=== PATIENT | female | born 1940 | race Caucasian/White ===

== ENCOUNTER 2023-05-11 14:00 | Inpatient (IN) | payer OTHER ==
[2023-05-11] MEDS ORDERED: ACETAMINOPHEN INJECTION 100 ML IVPB ONE (15:45)
[2023-05-11 15:51] LABS: BASO % 1.4 % (0-2.0); EOS % 6.6 % (0-4.5); HEMATOCRIT 37.9 % (32.4-45.2); HEMOGLOBIN 12.2 GM/dL (10.7-15.3); LYMPH % 34.9 % (8-40); MCHC 32.2 g/dl (32.0-36.0); MEAN CELL VOLUME 83.9 fl (80-96); MEAN PLT VOLUME 9.3 fl (7.5-11.1); MONO % 10.1 % (3.8-10.2); PLATELET COUNT 331 10^3/uL (134-434); RBC 4.51 M/mm3 (3.60-5.2); RDW 18.1 % (11.6-15.6); WHITE BLOOD COUNT 5.7 K/mm3 (4.0-10.0)
[2023-05-11 15:58] LABS: INR 0.97 (0.83-1.09); PROTHROMBIN TIME (PATIENT) 11.3 SEC (9.7-13.0)
[2023-05-11 16:01] LABS: ACTIVATED PTT 27.5 SECONDS (25.2-36.5)
[2023-05-11] MEDS: ACETAMINOPHEN 1000 MG/100 ML BAG IVPB ONE (16:02)
[2023-05-11] MEDS: SODIUM CHLORIDE 0.9% 500 ML INFUS.BAG IV ONE (16:02)
[2023-05-11 16:18] LABS: POTASSIUM 5.1 mmol/L (3.5-5.1)
[2023-05-11 16:19] LABS: CALCIUM 9.5 mg/dL (8.5-10.1)
[2023-05-11 16:20] LABS: ALBUMIN 3.3 g/dl (3.4-5.0); BLOOD UREA NITROGEN 28.9 mg/dL (7-18)
[2023-05-11 16:23] LABS: CREATININE 0.6 mg/dL (0.55-1.3)
[2023-05-11 16:25] LABS: BILIRUBIN,TOTAL 0.4 mg/dL (0.2-1); TOT PROT 7.6 g/dl (6.4-8.2)
[2023-05-11] MEDS ORDERED: morphine SULFATE 4 MG/ML VIAL ONE (19:23)
[2023-05-11] MEDS: morphine CARPU-JECT 4 MG/1 ML DISP.SYRIN IVPUSH ONE (19:33)
[2023-05-11] MEDS: SODIUM CHLORIDE 1,000 ML IV SCH (21:01)
[2023-05-11 21:21] LABS: EPI CELLS >36 /uL (0-25.1); HYALINE CASTS 5 /uL (0-3.1); URINE APPEARANCE CLOUDY; URINE BACTERIA 1749 /uL (0-1359); URINE BILIRUBIN NEGATIVE (NEGATIVE); URINE COLOR YELLOW; URINE GLUCOSE (UA) NEGATIVE (NEGATIVE); URINE KETONE NEGATIVE (NEGATIVE); URINE LEUK ESTERASE 1+ (NEGATIVE); URINE NITRITE NEGATIVE (NEGATIVE); URINE PROTEIN 2+ (NEGATIVE); URINE UROBILINOGEN 0.2 mg/dL (0.2-1.0); URINE WBC 200 /uL (0-25.8)
[2023-05-11] MEDS ORDERED: oxyCODONE HCL 5 MG TABLET ONE (21:37)
[2023-05-11] MEDS: oxyCODONE HCL 5 MG TABLET PO STA (21:44)
[2023-05-11 22:10] LABS: URINE RBC 299.7 /uL (0-23.9)
[2023-05-11] MEDS ORDERED: CEFTRIAXONE 1 GM/50 ML BAG ONE (23:18)
[2023-05-11] MEDS: CEFTRIAXONE 1 GM in DEXTROSE 5%-WATER - 50 ML IVPB ONE (23:27)
[2023-05-12] MEDS ORDERED: MELATONIN 5 MG TABLETS PO PRN (01:32)
[2023-05-12] MEDS ORDERED: MAGNESIUM HYDROX 2400MG/30ML ORAL SUSPENSION 30 ML CUP PO PRN (06:32)
[2023-05-12] MEDS ORDERED: LACTULOSE 20 GM/30 ML UDC (FOR ORAL USE ONLY) PEG PRN (06:32)
[2023-05-12] MEDS: ACETAMINOPHEN 1000 MG/100 ML BAG IVPB PRN (07:31)
[2023-05-12] MEDS: SIMETHICONE 80 MG TAB.CHEW (FP) PO SCH (08:52)
[2023-05-12] MEDS: NYSTATIN POWDER 100,000 UNITS/GM - 15 GM TOPICAL POWDER TP SCH (08:58)
[2023-05-12] MEDS: ALBUTEROL SO4 2.5/IPRATROPIUM 0.5 INH SOL 3 ML VIAL.NEB. NEB SCH (09:27)
[2023-05-12 10:15] LABS: BASO % 0.7 % (0-2.0); EOS % 4.1 % (0-4.5); HEMATOCRIT 33.8 % (32.4-45.2); HEMOGLOBIN 10.8 GM/dL (10.7-15.3); LYMPH % 18.4 % (8-40); MCH 26.6 pg (25.7-33.7); MCHC 31.8 g/dl (32.0-36.0); MEAN CELL VOLUME 83.7 fl (80-96); MEAN PLT VOLUME 9.6 fl (7.5-11.1); NEUT % 67.8 % (42.8-82.8); PLATELET COUNT 279 10^3/uL (134-434); RBC 4.04 M/mm3 (3.60-5.2); WHITE BLOOD COUNT 6.4 K/mm3 (4.0-10.0)
[2023-05-12] MEDS: ENOXAPARIN NA (PORCINE) 40 MG/0.4 ML DISP.SYRIN SQ SCH (10:30)
[2023-05-12] MEDS: LIDOCAINE 4% PATCH TP SCH (10:31)
[2023-05-12] MEDS: DOCUSATE NA 100 MG/10 ML UNIT-DOSE CUPS PO SCH (10:31)
[2023-05-12] MEDS: BACITRACIN ZINC 15 GM TUBE TOPICAL OINTMENT TP SCH (10:32)
[2023-05-12] MEDS: ONDANSETRON HCL 4 MG/5 ML BULK BOTTLE PEG SCH (10:33)
[2023-05-12] MEDS: CEFTRIAXONE 1 GM in DEXTROSE 5%-WATER - 50 ML IVPB SCH (10:34)
[2023-05-12] MEDS: VITAMINS A AND D TOPICAL OINTMENT TP SCH (10:34)
[2023-05-12] MEDS: FAMOTIDINE 20 MG/2.5 ML ORAL LIQUID PEG SCH (10:34)
[2023-05-12] MEDS: DULoxetine HCL 20 MG CAPSULE.DR PO SCH (10:35)
[2023-05-12] MEDS: oxyCODONE HCL 5 MG TABLET PO PRN (10:36)
[2023-05-12 10:38] LABS: POTASSIUM 4.7 mmol/L (3.5-5.1)
[2023-05-12 10:40] LABS: CALCIUM 8.8 mg/dL (8.5-10.1)
[2023-05-12 10:41] LABS: BLOOD UREA NITROGEN 22.3 mg/dL (7-18); MAGNESIUM 2.5 mg/dL (1.8-2.4)
[2023-05-12 10:44] LABS: CREATININE 0.5 mg/dL (0.55-1.3); PHOSPHOROUS 4.6 mg/dL (2.5-4.9)
[2023-05-12] MEDS: GABAPENTIN 100 MG CAPSULE PO SCH (14:17)
[2023-05-12] MEDS: LACTULOSE 20 GM/30 ML UDC (FOR ORAL USE ONLY) PEG SCH (14:17)
[2023-05-12] MEDS: MELATONIN 5 MG TABLETS PO SCH (21:35)
[2023-05-12] MEDS: LIDOCAINE PATCH REMOVAL MC SCH (21:36)
[2023-05-13 09:11] LABS: BASO % 1.5 % (0-2.0); EOS % 3.8 % (0-4.5); HEMATOCRIT 35.3 % (32.4-45.2); HEMOGLOBIN 11.3 GM/dL (10.7-15.3); LYMPH % 26.8 % (8-40); MCH 27.1 pg (25.7-33.7); MEAN CELL VOLUME 84.7 fl (80-96); MEAN PLT VOLUME 9.7 fl (7.5-11.1); MONO % 8.9 % (3.8-10.2); PLATELET COUNT 265 10^3/uL (134-434); RBC 4.17 M/mm3 (3.60-5.2); RDW 18.2 % (11.6-15.6)
[2023-05-13 09:27] LABS: POTASSIUM 4.4 mmol/L (3.5-5.1)
[2023-05-13 09:29] LABS: CALCIUM 8.9 mg/dL (8.5-10.1)
[2023-05-13 09:30] LABS: ALBUMIN 3.1 g/dl (3.4-5.0); BLOOD UREA NITROGEN 14.7 mg/dL (7-18); MAGNESIUM 2.5 mg/dL (1.8-2.4)
[2023-05-13 09:33] LABS: CREATININE 0.6 mg/dL (0.55-1.3); PHOSPHOROUS 4.2 mg/dL (2.5-4.9)
[2023-05-13 09:34] LABS: BILIRUBIN,TOTAL 0.4 mg/dL (0.2-1)
[2023-05-13 09:35] LABS: TOT PROT 7.1 g/dl (6.4-8.2)
[2023-05-13] MEDS: BACLOFEN 10 MG TABLET (FP) PO ONE (14:59)
[2023-05-14 07:58] LABS: HEMATOCRIT 34.5 % (32.4-45.2); HEMOGLOBIN 10.9 GM/dL (10.7-15.3); MCH 26.7 pg (25.7-33.7); MCHC 31.4 g/dl (32.0-36.0); MEAN PLT VOLUME 9.7 fl (7.5-11.1); PLATELET COUNT 254 10^3/uL (134-434); RBC 4.06 M/mm3 (3.60-5.2); RDW 18.1 % (11.6-15.6)
[2023-05-14 08:14] LABS: POTASSIUM 4.5 mmol/L (3.5-5.1)
[2023-05-14 08:15] LABS: CALCIUM 9.1 mg/dL (8.5-10.1)
[2023-05-14 08:16] LABS: BLOOD UREA NITROGEN 10.8 mg/dL (7-18)
[2023-05-14 08:19] LABS: CREATININE 0.4 mg/dL (0.55-1.3)
[2023-05-14] MEDS ORDERED: BACLOFEN 10 MG TABLET (FP) PO PRN (17:54)
[2023-05-14] MEDS: oxyCODONE HCL 5 MG TABLET PO PRN (18:16)
[2023-05-14] MEDS: BACLOFEN 10 MG TABLET (FP) PO PRN (18:16)
[2023-05-15 08:24] LABS: HEMATOCRIT 35.5 % (32.4-45.2); HEMOGLOBIN 11.4 GM/dL (10.7-15.3); MEAN CELL VOLUME 84.3 fl (80-96); MEAN PLT VOLUME 9.4 fl (7.5-11.1); PLATELET COUNT 258 10^3/uL (134-434); RBC 4.21 M/mm3 (3.60-5.2); RDW 18.1 % (11.6-15.6); WHITE BLOOD COUNT 4.3 K/mm3 (4.0-10.0)
[2023-05-15 08:46] LABS: POTASSIUM 4.3 mmol/L (3.5-5.1)
[2023-05-15 08:51] LABS: BLOOD UREA NITROGEN 11.2 mg/dL (7-18)
[2023-05-15 08:54] LABS: CREATININE 0.5 mg/dL (0.55-1.3)
[2023-05-15] MEDS: BACLOFEN 10 MG TABLET (FP) PO SCH (09:58)
[2023-05-15] MEDS: methylPREDNISolone NA SUCC 40 MG/1 ML VIAL IVPUSH ONE (11:09)
[2023-05-15] MEDS ORDERED: ALBUTEROL SO4 2.5/IPRATROPIUM 0.5 INH SOL 3 ML VIAL.NEB. NEB SCH (14:00)
[2023-05-15] MEDS: ALBUTEROL SO4 2.5/IPRATROPIUM 0.5 INH SOL 3 ML VIAL.NEB. NEB SCH (14:52)
[2023-05-17 08:51] LABS: HEMATOCRIT 34.5 % (32.4-45.2); HEMOGLOBIN 11.2 GM/dL (10.7-15.3); MCH 27.2 pg (25.7-33.7); MCHC 32.5 g/dl (32.0-36.0); MEAN CELL VOLUME 83.6 fl (80-96); MEAN PLT VOLUME 9.4 fl (7.5-11.1); PLATELET COUNT 277 10^3/uL (134-434); RBC 4.13 M/mm3 (3.60-5.2); RDW 18.3 % (11.6-15.6); WHITE BLOOD COUNT 6.1 K/mm3 (4.0-10.0)
[2023-05-17 08:55] LABS: CALCIUM 9.6 mg/dL (8.5-10.1); POTASSIUM 4.3 mmol/L (3.5-5.1)
[2023-05-17 08:56] LABS: BLOOD UREA NITROGEN 10.9 mg/dL (7-18)
[2023-05-17 08:59] LABS: CREATININE 0.5 mg/dL (0.55-1.3)
[2023-05-18] MEDS ORDERED: LIDOCAINE HCL 1%, 10 MG/ML (20ML VIAL) ONE (12:10)
[2023-05-18] MEDS ORDERED: HEPARIN NA (PORCINE) 5,000 UNITS/ML 1ML VIAL ONE (12:10)
[2023-05-18] MEDS ORDERED: PROPOFOL 20 ML ONE (13:36)
[2023-05-18] MEDS ORDERED: MIDAZOLAM HCL 2 MG/2 ML SINGLE DOSE VIAL ONE (13:57)
[2023-05-18] MEDS: ceFAZolin SODIUM 1 GM VIAL IVPB ONE (13:58)
[2023-05-18] MEDS: IOHEXOL 300 MG/ML INFUS..BTL IV ONE ×2 (14:00→14:05)
[2023-05-18] MEDS ORDERED: ONDANSETRON 4 MG/2 ML VIAL ONE (14:15)
[2023-05-18] MEDS ORDERED: KETOROLAC TROMETHAMINE 30 MG/1 ML VIAL ONE (14:15)
[2023-05-18] MEDS ORDERED: GENTAMICIN SO4 80 MG/2 ML VIAL ONE ×2 (14:15)
[2023-05-18] MEDS: GENTAMICIN SO4 80 MG/2 ML VIAL IVPB ONE (14:16)
[2023-05-18] MEDS ORDERED: ONDANSETRON 4 MG/2 ML VIAL IVPUSH PRN (14:32)
[2023-05-18] MEDS ORDERED: LACTATED RINGERS SOLUTION 1,000 ML IV SCH (14:45)
[2023-05-18] MEDS ORDERED: MAGNESIUM HYDROX 2400MG/30ML ORAL SUSPENSION 30 ML CUP PO PRN (14:47)
[2023-05-18] MEDS: CEFAZOLIN SODIUM 2 GM in DEXTROSE 5%-WATER 100 ML IVPB SCH (17:59)
[2023-05-18] MEDS: ALBUTEROL SO4 2.5/IPRATROPIUM 0.5 INH SOL 3 ML VIAL.NEB. NEB SCH (19:50)
[2023-05-18] MEDS: LACTULOSE 20 GM/30 ML UDC (FOR ORAL USE ONLY) PEG SCH (21:34)
[2023-05-18] MEDS: oxyCODONE HCL 5 MG TABLET PO PRN (21:35)
[2023-05-18] MEDS: GABAPENTIN 100 MG CAPSULE PO SCH (21:35)
[2023-05-18] MEDS: DOCUSATE NA 100 MG/10 ML UNIT-DOSE CUPS PO SCH (21:35)
[2023-05-18] MEDS: BACLOFEN 10 MG TABLET (FP) PO SCH (21:35)
[2023-05-18] MEDS: MELATONIN 5 MG TABLETS PO SCH (21:35)
[2023-05-18] MEDS: SIMETHICONE 80 MG TAB.CHEW (FP) PO SCH (21:36)
[2023-05-18] MEDS: ONDANSETRON HCL 4 MG/5 ML BULK BOTTLE PEG SCH (21:36)
[2023-05-18] MEDS: LIDOCAINE PATCH REMOVAL MC SCH (21:36)
[2023-05-18] MEDS: NYSTATIN POWDER 100,000 UNITS/GM - 15 GM TOPICAL POWDER TP SCH (21:37)
[2023-05-18] MEDS: FAMOTIDINE 20 MG/2.5 ML ORAL LIQUID PEG SCH (21:37)
[2023-05-19] MEDS: DULoxetine HCL 20 MG CAPSULE.DR PO SCH (09:03)
[2023-05-19] MEDS: BACITRACIN ZINC 15 GM TUBE TOPICAL OINTMENT TP SCH (09:04)
[2023-05-19] MEDS: VITAMINS A AND D TOPICAL OINTMENT TP SCH (09:07)
[2023-05-19] MEDS: LIDOCAINE 4% PATCH TP SCH (09:29)
[2023-05-19 10:03] LABS: MCH 26.9 pg (25.7-33.7); MCHC 31.4 g/dl (32.0-36.0); MEAN CELL VOLUME 85.6 fl (80-96); PLATELET COUNT 278 10^3/uL (134-434); RBC 4.08 M/mm3 (3.60-5.2); RDW 18.3 % (11.6-15.6); WHITE BLOOD COUNT 6.5 K/mm3 (4.0-10.0)
[2023-05-19 10:27] LABS: POTASSIUM 4.6 mmol/L (3.5-5.1)
[2023-05-19 10:43] LABS: CALCIUM 9.2 mg/dL (8.5-10.1)
[2023-05-19 10:44] LABS: BLOOD UREA NITROGEN 14.5 mg/dL (7-18)
[2023-05-19 10:47] LABS: CREATININE 0.8 mg/dL (0.55-1.3)
[2023-05-19 10:48] LABS: BILIRUBIN,TOTAL 0.4 mg/dL (0.2-1)
[2023-05-19 10:50] LABS: TOT PROT 7.4 g/dl (6.4-8.2)
[2023-05-20 08:23] LABS: HEMATOCRIT 33.1 % (32.4-45.2); HEMOGLOBIN 10.8 GM/dL (10.7-15.3); MCH 27.4 pg (25.7-33.7); MCHC 32.8 g/dl (32.0-36.0); MEAN CELL VOLUME 83.7 fl (80-96); MEAN PLT VOLUME 9.2 fl (7.5-11.1); PLATELET COUNT 259 10^3/uL (134-434); RBC 3.95 M/mm3 (3.60-5.2); RDW 18.2 % (11.6-15.6)
[2023-05-20 08:41] LABS: POTASSIUM 4.3 mmol/L (3.5-5.1)
[2023-05-20 08:43] LABS: BLOOD UREA NITROGEN 10.5 mg/dL (7-18); CALCIUM 9.2 mg/dL (8.5-10.1)
[2023-05-20 08:46] LABS: CREATININE 0.6 mg/dL (0.55-1.3)
[2023-05-20] MEDS: ENOXAPARIN NA (PORCINE) 40 MG/0.4 ML DISP.SYRIN SQ SCH (09:53)
[2023-05-20] MEDS: ASCORBIC ACID 250 MG TABLET (FP) PO SCH (12:51)
[2023-05-20] MEDS: MULTIVITAMINS THER W-MINERALS COMBO TABLET (FP) PO SCH (12:51)
[2023-05-21 07:32] LABS: POTASSIUM 4.2 mmol/L (3.5-5.1)
[2023-05-21 07:42] LABS: CALCIUM 8.8 mg/dL (8.5-10.1)
[2023-05-21 07:43] LABS: BLOOD UREA NITROGEN 8.8 mg/dL (7-18)
[2023-05-21 07:45] LABS: CREATININE 0.6 mg/dL (0.55-1.3)
[2023-05-21 07:47] LABS: HEMOGLOBIN 11.2 GM/dL (10.7-15.3); MCH 27.2 pg (25.7-33.7); MCHC 32.9 g/dl (32.0-36.0); MEAN CELL VOLUME 82.6 fl (80-96); MEAN PLT VOLUME 9.6 fl (7.5-11.1); PLATELET COUNT 258 10^3/uL (134-434); RBC 4.12 M/mm3 (3.60-5.2); RDW 17.7 % (11.6-15.6)
[2023-05-21 13:17] LABS: EPI CELLS 31 /uL (0-25.1); HYALINE CASTS 2 /uL (0-3.1); PH,URINE 7.5 (5.0-8.0); URINE APPEARANCE CLOUDY; URINE BACTERIA 288 /uL (0-1359); URINE BILIRUBIN NEGATIVE (NEGATIVE); URINE COLOR YELLOW; URINE GLUCOSE (UA) NEGATIVE (NEGATIVE); URINE KETONE TRACE (NEGATIVE); URINE LEUK ESTERASE 2+ (NEGATIVE); URINE NITRITE NEGATIVE (NEGATIVE); URINE PROTEIN 2+ (NEGATIVE); URINE UROBILINOGEN 0.2 mg/dL (0.2-1.0); URINE WBC 315 /uL (0-25.8)
[2023-05-21] MEDS: ACETAMINOPHEN 1000 MG/100 ML BAG IVPB PRN (13:30)
[2023-05-21 13:40] LABS: YEAST NEGATIVE (NEGATIVE)
[2023-05-21] MEDS ORDERED: IOHEXOL (OMNIPAQUE PO) 12 MG/ML - 500 ML BOTTLE PO ONE ×2 (13:42→16:08)
[2023-05-21] MEDS: PANTOPRAZOLE SODIUM 40 MG VIAL IVPUSH ONE (22:43)
[2023-05-22] MEDS: METOCLOPRAMIDE HCL INJECTION 10 MG/2 ML VIAL IVPUSH PRN (09:53)
[2023-05-22] MEDS: LACTATED RINGERS SOLUTION 1,000 ML/1,000 ML INFUS.BAG IV STA (09:59)
[2023-05-22 10:00] LABS: HEMATOCRIT 32.1 % (32.4-45.2); HEMOGLOBIN 10.6 GM/dL (10.7-15.3); MCH 27.1 pg (25.7-33.7); MCHC 33.2 g/dl (32.0-36.0); MEAN CELL VOLUME 81.8 fl (80-96); MEAN PLT VOLUME 9.4 fl (7.5-11.1); PLATELET COUNT 239 10^3/uL (134-434); RBC 3.92 M/mm3 (3.60-5.2); RDW 17.9 % (11.6-15.6); WHITE BLOOD COUNT 6.6 K/mm3 (4.0-10.0)
[2023-05-22 10:12] LABS: POTASSIUM 4.4 mmol/L (3.5-5.1)
[2023-05-22 10:23] LABS: ALBUMIN 2.8 g/dl (3.4-5.0); BLOOD UREA NITROGEN 16.4 mg/dL (7-18); CALCIUM 8.8 mg/dL (8.5-10.1); MAGNESIUM 2.3 mg/dL (1.8-2.4)
[2023-05-22 10:26] LABS: CREATININE 0.6 mg/dL (0.55-1.3); PHOSPHOROUS 3.6 mg/dL (2.5-4.9)
[2023-05-22 10:27] LABS: TOT PROT 6.7 g/dl (6.4-8.2)
[2023-05-22 10:28] LABS: BILIRUBIN,TOTAL 0.3 mg/dL (0.2-1)
[2023-05-22] MEDS: PIPERACILLIN/TAZOB 3.375 GM 3.375 GM in DEXTROSE 5%-WATER - 50 ML IVPB SCH ×2 (10:40→18:01)
[2023-05-22] MEDS: VANCOMYCIN/WATER 1250 MG 1,250 MG/250 ML BAG IVPB SCH ×2 (11:37→16:48)
[2023-05-22] MEDS ORDERED: PIPERACILLIN/TAZOB 3.375 GM 3.375 GM in DEXTROSE 5%-WATER - 50 ML IVPB SCH (18:00)
[2023-05-22] MEDS: ACETAMINOPHEN 1000 MG/100 ML BAG IVPB PRN (22:40)
[2023-05-23 08:59] LABS: POTASSIUM 3.8 mmol/L (3.5-5.1)
[2023-05-23 09:13] LABS: ALBUMIN 2.8 g/dl (3.4-5.0); CALCIUM 9.6 mg/dL (8.5-10.1)
[2023-05-23 09:16] LABS: CREATININE 0.7 mg/dL (0.55-1.3)
[2023-05-23 09:18] LABS: BILIRUBIN,TOTAL 0.3 mg/dL (0.2-1)
[2023-05-23 09:34] LABS: HEMATOCRIT 35.5 % (32.4-45.2); HEMOGLOBIN 11.2 GM/dL (10.7-15.3); MCH 26.5 pg (25.7-33.7); MCHC 31.5 g/dl (32.0-36.0); MEAN PLT VOLUME 9.7 fl (7.5-11.1); PLATELET COUNT 235 10^3/uL (134-434); RBC 4.23 M/mm3 (3.60-5.2); RDW 18.2 % (11.6-15.6)
[2023-05-24] MEDS: ACETAMINOPHEN 1000 MG/100 ML BAG IVPB ONE (03:26)
[2023-05-24] MEDS ORDERED: VANCOMYCIN 1,000 MG in DEXTROSE 5%-WATER - 250 ML IVPB SCH (13:00)
[2023-05-24] MEDS: VANCOMYCIN/WATER FOR INJ (PEG) 1,000 MG/200 ML BAG IVPB SCH (14:00)
[2023-05-25 08:30] LABS: HEMATOCRIT 30.3 % (32.4-45.2); MEAN PLT VOLUME 9.5 fl (7.5-11.1); PLATELET COUNT 286 10^3/uL (134-434); RBC 3.69 M/mm3 (3.60-5.2); RDW 18.4 % (11.6-15.6); WHITE BLOOD COUNT 6.4 K/mm3 (4.0-10.0)
[2023-05-25 08:41] LABS: POTASSIUM 3.6 mmol/L (3.5-5.1)
[2023-05-25 08:48] LABS: CALCIUM 8.7 mg/dL (8.5-10.1)
[2023-05-25 08:49] LABS: BLOOD UREA NITROGEN 17.3 mg/dL (7-18)
[2023-05-25 08:52] LABS: CREATININE 0.4 mg/dL (0.55-1.3)
[2023-05-25] MEDS: AMINO ACIDS/PROTEIN HYDROLYS 30 ML LIQUID.PKT PO SCH (09:17)
[2023-05-25] MEDS ORDERED: VANCOMYCIN/WATER FOR INJ (PEG) 1,000 MG/200 ML BAG IVPB SCH (14:00)
[2023-05-25] MEDS: VANCOMYCIN/WATER FOR INJ (PEG) 750 MG/150 ML BAG IVPB SCH (15:37)
[2023-05-25] MEDS: VANCOMYCIN 1,000 MG in DEXTROSE 5%-WATER - 250 ML IVPB SCH (16:24)
[2023-05-26 09:58] LABS: HEMATOCRIT 32.3 % (32.4-45.2); HEMOGLOBIN 10.3 GM/dL (10.7-15.3); MCH 26.3 pg (25.7-33.7); MCHC 31.8 g/dl (32.0-36.0); MEAN CELL VOLUME 82.8 fl (80-96); MEAN PLT VOLUME 9.2 fl (7.5-11.1); PLATELET COUNT 335 10^3/uL (134-434); RDW 18.7 % (11.6-15.6); WHITE BLOOD COUNT 5.8 K/mm3 (4.0-10.0)
[2023-05-26 10:27] LABS: POTASSIUM 3.8 mmol/L (3.5-5.1)
[2023-05-26 10:32] LABS: CALCIUM 8.9 mg/dL (8.5-10.1)
[2023-05-26 10:38] LABS: CREATININE 0.6 mg/dL (0.55-1.3)
[2023-05-26 10:59] LABS: BLOOD UREA NITROGEN 17.4 mg/dL (7-18)
[2023-05-27 08:18] LABS: MCH 25.9 pg (25.7-33.7); MCHC 31.3 g/dl (32.0-36.0); PLATELET COUNT 376 10^3/uL (134-434); RBC 3.85 M/mm3 (3.60-5.2); RDW 18.7 % (11.6-15.6); WHITE BLOOD COUNT 7.2 K/mm3 (4.0-10.0)
[2023-05-27 09:50] LABS: POTASSIUM 4.2 mmol/L (3.5-5.1)
[2023-05-27 09:51] LABS: BLOOD UREA NITROGEN 16.1 mg/dL (7-18); CALCIUM 8.9 mg/dL (8.5-10.1)
[2023-05-27 09:52] LABS: MAGNESIUM 2.4 mg/dL (1.8-2.4)
[2023-05-27 09:55] LABS: CREATININE 0.6 mg/dL (0.55-1.3); PHOSPHOROUS 3.1 mg/dL (2.5-4.9)
[2023-05-27] MEDS ORDERED: GABAPENTIN 100 MG CAPSULE PO SCH (09:56)
[2023-05-27] MEDS: GABAPENTIN 100 MG CAPSULE PO SCH (14:06)
[2023-05-27 16:08] LABS: CA HYDROGEN PHOS. 50 % (.); SIZE 6x4 mm (.); WEIGHT 34 mg (.)
[2023-05-28] MEDS: VANCOMYCIN/WATER FOR INJ (PEG) 750 MG/150 ML BAG IVPB SCH (01:00)
[2023-05-28 10:09] LABS: HEMATOCRIT 35.4 % (32.4-45.2); HEMOGLOBIN 10.9 GM/dL (10.7-15.3); MCH 25.7 pg (25.7-33.7); MCHC 30.8 g/dl (32.0-36.0); MEAN CELL VOLUME 83.4 fl (80-96); MEAN PLT VOLUME 9.3 fl (7.5-11.1); PLATELET COUNT 438 10^3/uL (134-434); RBC 4.25 M/mm3 (3.60-5.2); RDW 18.8 % (11.6-15.6); WHITE BLOOD COUNT 9.9 K/mm3 (4.0-10.0)
[2023-05-28 10:39] LABS: POTASSIUM 4.8 mmol/L (3.5-5.1)
[2023-05-28 10:44] LABS: BLOOD UREA NITROGEN 17.8 mg/dL (7-18); CALCIUM 9.2 mg/dL (8.5-10.1)
[2023-05-28 10:48] LABS: CREATININE 0.5 mg/dL (0.55-1.3)
[2023-05-28] MEDS: BACLOFEN 10 MG TABLET (FP) PO SCH (12:11)
[2023-05-28] MEDS: IBUPROFEN 400 MG TABLET (FP) PO PRN (12:11)
[2023-05-28] MEDS: VANCOMYCIN/WATER FOR INJ (PEG) 1,000 MG/200 ML BAG IVPB SCH (14:00)
[2023-05-28] MEDS: oxyCODONE HCL 5 MG TABLET PO PRN (17:02)
[2023-05-29 09:04] LABS: HEMATOCRIT 29.3 % (32.4-45.2); HEMOGLOBIN 9.6 GM/dL (10.7-15.3); MCH 26.9 pg (25.7-33.7); MCHC 32.8 g/dl (32.0-36.0); MEAN CELL VOLUME 81.9 fl (80-96); MEAN PLT VOLUME 8.9 fl (7.5-11.1); PLATELET COUNT 423 10^3/uL (134-434); RBC 3.58 M/mm3 (3.60-5.2); RDW 18.6 % (11.6-15.6); WHITE BLOOD COUNT 7.7 K/mm3 (4.0-10.0)
[2023-05-29 09:14] LABS: POTASSIUM 4.9 mmol/L (3.5-5.1)
[2023-05-29 09:25] LABS: CALCIUM 9.1 mg/dL (8.5-10.1)
[2023-05-29 09:29] LABS: CREATININE 0.4 mg/dL (0.55-1.3)
[2023-05-29] MEDS: oxyCODONE HCL 5 MG TABLET PO ONE (10:41)
[2023-05-29 18:19] VITALS: RESP 20
[2023-05-29] MEDS: oxyCODONE HCL 5 MG TABLET PO PRN (21:45)
[2023-05-30] MEDS: DULoxetine HCL 30 MG CAPSULE.DR PO SCH (10:00)
[2023-05-30 13:10] VITALS: BMI 26.8
[2023-05-30 14:02] VITALS: BP 119/61; PULSE 93; TEMP 99.3
== END 2023-05-30 21:30 | DRG 659 ==
LOC: JER 14:00 → JERBED 18:46 → J6S 23:53 → OBSVTOIN 05-13 09:59
PROVIDERS: ADMIT Internal Medicine; ATTEND Internal Medicine
PROC: 0TP98DZ Removal of Intraluminal Device from Ureter, Via Natural or Artificial Opening Endoscopic (ICD-10-PCS; 2023-05-18)
PROC: 0TCB8ZZ Extirpation of Matter from Bladder, Via Natural or Artificial Opening Endoscopic (ICD-10-PCS; 2023-05-18)
PROC: BT1DZZZ Fluoroscopy of Right Kidney, Ureter and Bladder (ICD-10-PCS; principal; 2023-05-18 13:30)
PROC: 0T768DZ Dilation of Right Ureter with Intraluminal Device, Via Natural or Artificial Opening Endoscopic (ICD-10-PCS; 2023-05-18 13:30)
DX: T83.89XA Other specified complication of genitourinary prosthetic devices, implants and grafts, initial encounter (principal); A41.81 Sepsis due to Enterococcus; N13.2 Hydronephrosis with renal and ureteral calculous obstruction; G82.20 Paraplegia, unspecified; J98.11 Atelectasis; M79.7 Fibromyalgia; E54 Ascorbic acid deficiency; R50.9 Fever, unspecified; I95.9 Hypotension, unspecified; F03.90 Unspecified dementia, unspecified severity, without behavioral disturbance, psychotic disturbance, mood disturbance, and anxiety; R00.0 Tachycardia, unspecified; J45.909 Unspecified asthma, uncomplicated; M21.372 Foot drop, left foot; M21.371 Foot drop, right foot; M62.830 Muscle spasm of back; G35 Multiple sclerosis; Y84.6 Urinary catheterization as the cause of abnormal reaction of the patient, or of later complication, without mention of misadventure at the time of the procedure; Z93.1 Gastrostomy status
CPT/HCPCS: 0241U-QW; 36415; 71045-TC-FY; 71260-TC; 72050-TC-FY; 74018-TC-FY; 74176-TC; 74177-TC; 76000-TC-FY; 80048; 80053; 81003; 82360; 82962; 83605; 83690; 83735; 84100; 85025; 85027; 85610; 85730; 86850; 86900; 86901; 87040; 87070; 87086; 87186; 88300-TC; 93005; 93010; 94010; 94640; 94760; 99285-25; C1747; C1758; C1769; C2617; G0378; G0480; J0131; J0475; J1644; Q9967

== ENCOUNTER 2023-07-05 16:58 | Inpatient (IN) | payer OTHER ==
[2023-07-05] MEDS ORDERED: ONDANSETRON *ODT* 4 MG TABLET SL ONE (17:19)
[2023-07-05] MEDS ORDERED: ONDANSETRON *ODT* 4 MG TABLET ONE (17:32)
[2023-07-05] MEDS: ONDANSETRON 4 MG/2 ML VIAL IVPUSH ONE ×2 (17:48→18:43)
[2023-07-05] MEDS ORDERED: ONDANSETRON 4 MG/2 ML VIAL ONE (18:32)
[2023-07-05] MEDS ORDERED: ALBUTEROL SO4 2.5/IPRATROPIUM 0.5 INH SOL 3 ML VIAL.NEB. NEB ONE (18:32)
[2023-07-05 18:34] LABS: VENOUS BASE EXCESS -4.5 mmol/L (-2-2); VENOUS PCO2 65.6 mmHg (38-52)
[2023-07-05 18:35] LABS: EOS % 4.2 % (0-4.5); HEMATOCRIT 37.7 % (32.4-45.2); HEMOGLOBIN 11.8 GM/dL (10.7-15.3); LYMPH % 27.8 % (8-40); MCH 26.1 pg (25.7-33.7); MCHC 31.4 g/dl (32.0-36.0); MEAN CELL VOLUME 83.1 fl (80-96); MEAN PLT VOLUME 9.2 fl (7.5-11.1); MONO % 9.9 % (3.8-10.2); NEUT % 57.1 % (42.8-82.8); PLATELET COUNT 363 10^3/uL (134-434); RBC 4.53 M/mm3 (3.60-5.2); VENOUS PH 7.191 (7.310-7.410); WHITE BLOOD COUNT 6.7 K/mm3 (4.0-10.0)
[2023-07-05] MEDS: ALBUTEROL SO4 2.5/IPRATROPIUM 0.5 INH SOL 3 ML VIAL.NEB. NEB ONE (18:43)
[2023-07-05 18:45] LABS: POTASSIUM 4.4 mmol/L (3.5-5.1)
[2023-07-05] MEDS ORDERED: LACTATED RINGERS SOLUTION 1,000 ML/1,000 ML INFUS.BAG IV SCH (18:45)
[2023-07-05 18:47] LABS: CALCIUM 9.9 mg/dL (8.5-10.1)
[2023-07-05 18:48] LABS: ALBUMIN 3.2 g/dl (3.4-5.0); BLOOD UREA NITROGEN 20.6 mg/dL (7-18); MAGNESIUM 2.9 mg/dL (1.8-2.4)
[2023-07-05 18:51] LABS: CREATININE 0.6 mg/dL (0.55-1.3)
[2023-07-05 18:52] LABS: BILIRUBIN,TOTAL 0.4 mg/dL (0.2-1)
[2023-07-05 18:53] LABS: TOT PROT 8.2 g/dl (6.4-8.2)
[2023-07-05 18:56] LABS: N-TERMINAL BNP 124.6 pg/ml (5-450)
[2023-07-05] MEDS: SODIUM CHLORIDE 0.9% 500 ML INFUS.BAG IV ONE (19:01)
[2023-07-05] MEDS: ACETAMINOPHEN 1000 MG/100 ML BAG IVPB ONE (20:55)
[2023-07-05] MEDS ORDERED: ACETAMINOPHEN INJECTION 100 ML IVPB ONE (20:56)
[2023-07-05] MEDS: morphine CARPU-JECT 2 MG/1 ML DISP.SYRIN IVPUSH ONE (23:37)
[2023-07-05 23:52] LABS: EPI CELLS 32 /uL (0-25.1); HYALINE CASTS 5 /uL (0-3.1); URINE APPEARANCE TURBID; URINE BACTERIA 459 /uL (0-1359); URINE BILIRUBIN NEGATIVE (NEGATIVE); URINE COLOR DK YELLOW; URINE GLUCOSE (UA) NEGATIVE (NEGATIVE); URINE KETONE 1+ (NEGATIVE); URINE LEUK ESTERASE 3+ (NEGATIVE); URINE NITRITE NEGATIVE (NEGATIVE); URINE PROTEIN 4+ (NEGATIVE); URINE WBC 4359 /uL (0-25.8)
[2023-07-06] MEDS ORDERED: CEFTRIAXONE 1 GM/50 ML BAG ONE (00:55)
[2023-07-06 01:14] LABS: VENOUS BASE EXCESS 1.6 mmol/L (-2-2); VENOUS O2 SATURATION 51.5 % (70-80); VENOUS PCO2 54.8 mmHg (38-52); VENOUS PH 7.332 (7.310-7.410)
[2023-07-06 01:50] LABS: ARTERIAL BLD GAS O2 SATURATION 95.2 % (95-98); ARTERIAL BLOOD GAS BASE EXCESS 1.8 mmol/L (-2-2); ARTERIAL BLOOD GAS PO2 79.4 mmHg (80-100); ARTERIAL BLOOD GAS pH 7.365 (7.350-7.450)
[2023-07-06 01:52] LABS: ALLENS TEST POSITIVE
[2023-07-06] MEDS: ONDANSETRON 4 MG/2 ML VIAL IVPUSH PRN (02:15)
[2023-07-06 04:52] LABS: URINE RBC 3194.9 /uL (0-23.9); YEAST FEW (NEGATIVE)
[2023-07-06] MEDS ORDERED: oxyCODONE HCL 5 MG TABLET PO PRN (05:28)
[2023-07-06] MEDS: GABAPENTIN 250 MG/5 ML ORAL SOLUTION, 470 ML BOTTLE GT SCH (05:43)
[2023-07-06] MEDS: LACTULOSE 20 GM/30 ML UDC (FOR ORAL USE ONLY) GT SCH (05:43)
[2023-07-06] MEDS: ACETAMINOPHEN 1000 MG/100 ML BAG IVPB PRN (06:17)
[2023-07-06 06:29] LABS: HEMATOCRIT 35.4 % (32.4-45.2); HEMOGLOBIN 10.8 GM/dL (10.7-15.3); MCH 25.9 pg (25.7-33.7); MCHC 30.6 g/dl (32.0-36.0); MEAN CELL VOLUME 84.9 fl (80-96); MEAN PLT VOLUME 9.1 fl (7.5-11.1); PLATELET COUNT 307 10^3/uL (134-434); RBC 4.17 M/mm3 (3.60-5.2); RDW 19.8 % (11.6-15.6); WHITE BLOOD COUNT 5.5 K/mm3 (4.0-10.0)
[2023-07-06 06:57] LABS: POTASSIUM 4.4 mmol/L (3.5-5.1)
[2023-07-06 07:00] LABS: CALCIUM 9.4 mg/dL (8.5-10.1)
[2023-07-06 07:01] LABS: BLOOD UREA NITROGEN 18.7 mg/dL (7-18); MAGNESIUM 2.8 mg/dL (1.8-2.4)
[2023-07-06 07:04] LABS: CREATININE 0.5 mg/dL (0.55-1.3); PHOSPHOROUS 4.5 mg/dL (2.5-4.9)
[2023-07-06 07:05] LABS: BILIRUBIN,TOTAL 0.4 mg/dL (0.2-1); TOT PROT 7.4 g/dl (6.4-8.2)
[2023-07-06] MEDS ORDERED: NYSTATIN POWDER 100,000 UNITS/GM - 15 GM TOPICAL POWDER TP SCH (10:00)
[2023-07-06] MEDS: FAMOTIDINE 20 MG TABLET PO SCH ×2 (11:00→22:08)
[2023-07-06] MEDS: DULoxetine HCL 30 MG CAPSULE.DR PO SCH (11:00)
[2023-07-06] MEDS: LIDOCAINE 4% PATCH TP SCH (11:21)
[2023-07-06] MEDS: NYSTATIN POWDER 100,000 UNITS/GM - 15 GM TOPICAL POWDER TP SCH ×2 (11:22→23:56)
[2023-07-06] MEDS: PIPERACILLIN/TAZOB 3.375 GM 3.375 GM in DEXTROSE 5%-WATER - 50 ML IVPB SCH (11:23)
[2023-07-06] MEDS: CEFAZOLIN 1 GM in DEXTROSE 5%-WATER - 50 ML IVPB SCH (17:02)
[2023-07-06] MEDS ORDERED: ACETAMINOPHEN 1000 MG/100 ML BAG IVPB PRN (18:32)
[2023-07-06] MEDS: oxyCODONE HCL 5 MG TABLET PO PRN (18:51)
[2023-07-06] MEDS ORDERED: LIDOCAINE PATCH REMOVAL MC SCH (22:00)
[2023-07-06] MEDS ORDERED: MELATONIN 5 MG TABLETS GT SCH (22:00)
[2023-07-06] MEDS: MELATONIN 5 MG TABLETS PO SCH (22:08)
[2023-07-06] MEDS: LIDOCAINE PATCH REMOVAL MC SCH (22:09)
[2023-07-06] MEDS: GABAPENTIN 250 MG/5 ML ORAL SOLUTION, 470 ML BOTTLE PO SCH (23:56)
[2023-07-07] MEDS: GABAPENTIN 100 MG CAPSULE PO SCH (06:22)
[2023-07-07] MEDS: ONDANSETRON 4 MG/2 ML VIAL IVPUSH PRN (08:42)
[2023-07-07] MEDS: ENOXAPARIN NA (PORCINE) 40 MG/0.4 ML DISP.SYRIN SQ SCH (12:36)
[2023-07-07] MEDS: DULoxetine HCL 30 MG CAPSULE.DR PO SCH (12:36)
[2023-07-07] MEDS: POLYETHYLENE GLYCOL (HEALTHYLAX) 3350 17 GM PACKET PO SCH (12:36)
[2023-07-07] MEDS: LIDOCAINE 4% PATCH TP SCH (12:36)
[2023-07-07] MEDS: SENNOSIDES/DOCUSATE COMBO (SENNA PLUS) TABLET (UD) PO SCH (12:37)
[2023-07-07 14:23] VITALS: BMI 25.0
[2023-07-08 08:29] LABS: HEMATOCRIT 36.2 % (32.4-45.2); HEMOGLOBIN 11.4 GM/dL (10.7-15.3); MCH 26.2 pg (25.7-33.7); MCHC 31.7 g/dl (32.0-36.0); MEAN CELL VOLUME 82.7 fl (80-96); MEAN PLT VOLUME 9.2 fl (7.5-11.1); PLATELET COUNT 333 10^3/uL (134-434); RBC 4.37 M/mm3 (3.60-5.2); RDW 19.2 % (11.6-15.6); WHITE BLOOD COUNT 3.9 K/mm3 (4.0-10.0)
[2023-07-08 08:34] LABS: INR 1.03 (0.83-1.09); PROTHROMBIN TIME (PATIENT) 11.9 SEC (9.7-13.0)
[2023-07-08 08:37] LABS: ACTIVATED PTT 29.8 SECONDS (25.2-36.5)
[2023-07-08 08:39] LABS: POTASSIUM 4.2 mmol/L (3.5-5.1)
[2023-07-08 08:44] LABS: BLOOD UREA NITROGEN 11.2 mg/dL (7-18)
[2023-07-08 08:45] LABS: CALCIUM 9.6 mg/dL (8.5-10.1)
[2023-07-08 08:46] LABS: CREATININE 0.5 mg/dL (0.55-1.3)
[2023-07-09 08:33] LABS: BASO % 1.2 % (0-2.0); EOS % 4.8 % (0-4.5); HEMATOCRIT 37.9 % (32.4-45.2); HEMOGLOBIN 11.8 GM/dL (10.7-15.3); LYMPH % 21.7 % (8-40); MCHC 31.2 g/dl (32.0-36.0); MEAN CELL VOLUME 83.3 fl (80-96); MEAN PLT VOLUME 8.8 fl (7.5-11.1); MONO % 11.3 % (3.8-10.2); PLATELET COUNT 315 10^3/uL (134-434); RBC 4.55 M/mm3 (3.60-5.2); RDW 19.4 % (11.6-15.6); WHITE BLOOD COUNT 5.8 K/mm3 (4.0-10.0)
[2023-07-09 08:47] LABS: POTASSIUM 4.4 mmol/L (3.5-5.1)
[2023-07-09 08:49] LABS: CALCIUM 9.2 mg/dL (8.5-10.1)
[2023-07-09 08:50] LABS: BLOOD UREA NITROGEN 10.9 mg/dL (7-18)
[2023-07-09 08:53] LABS: CREATININE 0.5 mg/dL (0.55-1.3)
[2023-07-10 08:32] LABS: POTASSIUM 4.2 mmol/L (3.5-5.1)
[2023-07-10 08:36] LABS: BLOOD UREA NITROGEN 11.7 mg/dL (7-18); CALCIUM 9.1 mg/dL (8.5-10.1)
[2023-07-10 08:40] LABS: CREATININE 0.4 mg/dL (0.55-1.3)
[2023-07-10] MEDS: AMINO ACIDS/PROTEIN HYDROLYS 30 ML LIQUID.PKT PO SCH ×2 (10:12)
[2023-07-10 13:42] VITALS: BP 138/68; PULSE 80; RESP 19; TEMP 98
== END 2023-07-10 15:17 | DRG 393 ==
LOC: JER 16:58 → JERBED 18:49 → OBSVTOIN 07-06 02:56 → J4W 07-06 05:58 → J7W 07-06 18:13
PROVIDERS: ADMIT Internal Medicine; ATTEND Internal Medicine
PROC: 0D20XUZ Change Feeding Device in Upper Intestinal Tract, External Approach (ICD-10-PCS; principal; 2023-07-08)
DX: K94.23 Gastrostomy malfunction (principal); E43 Unspecified severe protein-calorie malnutrition; J96.22 Acute and chronic respiratory failure with hypercapnia; R53.2 Functional quadriplegia; K56.7 Ileus, unspecified; L03.311 Cellulitis of abdominal wall; K94.22 Gastrostomy infection; Y83.8 Other surgical procedures as the cause of abnormal reaction of the patient, or of later complication, without mention of misadventure at the time of the procedure; M79.7 Fibromyalgia; F03.90 Unspecified dementia, unspecified severity, without behavioral disturbance, psychotic disturbance, mood disturbance, and anxiety; K57.90 Diverticulosis of intestine, part unspecified, without perforation or abscess without bleeding; Z68.25 Body mass index [BMI] 25.0-25.9, adult
CPT/HCPCS: 0241U-QW; 36415; 36600; 49440; 71045-TC-FY; 71275-TC; 74018-TC-FY; 74177-TC; 76700-TC; 80048; 80053; 81003; 82803; 83605; 83735; 83880; 84100; 84484; 85025; 85027; 85610; 85730; 86850; 86900; 86901; 87086; 93005; 93010; 99285-25; G0378; J0131

== ENCOUNTER 2023-08-04 05:47 | Emergency (ER) | payer OTHER ==
[2023-08-04 05:52] VITALS: BMI 26.5
[2023-08-04] MEDS ORDERED: ACETAMINOPHEN INJECTION 100 ML IVPB ONE (08:11)
[2023-08-04] MEDS: ACETAMINOPHEN 1000 MG/100 ML BAG IVPB ONE (08:20)
[2023-08-04 08:28] LABS: EOS % 6.5 % (0-4.5); HEMATOCRIT 37.4 % (32.4-45.2); HEMOGLOBIN 11.7 GM/dL (10.7-15.3); LYMPH % 36.2 % (8-40); MCH 26.1 pg (25.7-33.7); MCHC 31.3 g/dl (32.0-36.0); MEAN CELL VOLUME 83.6 fl (80-96); MEAN PLT VOLUME 8.9 fl (7.5-11.1); MONO % 11.2 % (3.8-10.2); NEUT % 45.1 % (42.8-82.8); PLATELET COUNT 340 10^3/uL (134-434); RBC 4.48 M/mm3 (3.60-5.2); RDW 20.2 % (11.6-15.6); WHITE BLOOD COUNT 5.6 K/mm3 (4.0-10.0)
[2023-08-04 08:37] LABS: INR 0.92 (0.83-1.09); PROTHROMBIN TIME (PATIENT) 10.4 SEC (9.7-13.0)
[2023-08-04 08:38] LABS: POTASSIUM 4.9 mmol/L (3.5-5.1)
[2023-08-04 08:39] LABS: ACTIVATED PTT 29.6 SECONDS (25.2-36.5)
[2023-08-04 08:40] LABS: ALBUMIN 3.2 g/dl (3.4-5.0); CALCIUM 9.4 mg/dL (8.5-10.1)
[2023-08-04 08:43] LABS: CREATININE 0.6 mg/dL (0.55-1.3)
[2023-08-04 08:45] LABS: BILIRUBIN,TOTAL 0.4 mg/dL (0.2-1); TOT PROT 8.3 g/dl (6.4-8.2)
[2023-08-04] MEDS ORDERED: ONDANSETRON 4 MG/2 ML VIAL ONE (08:48)
[2023-08-04] MEDS: ONDANSETRON 4 MG/2 ML VIAL IVPUSH ONE (08:55)
[2023-08-04 09:26] VITALS: BP 143/87; PULSE 90; RESP 20; TEMP 98.3
== END 2023-08-04 11:03 ==
LOC: JER 05:47
PROC: 0DH60UZ Insertion of Feeding Device into Stomach, Open Approach (ICD-10-PCS; principal; 2023-08-04)
PROC: 3E030NZ Introduction of Analgesics, Hypnotics, Sedatives into Peripheral Vein, Open Approach (ICD-10-PCS; 2023-08-04)
PROC: 3E030GC Introduction of Other Therapeutic Substance into Peripheral Vein, Open Approach (ICD-10-PCS; 2023-08-04)
DX: K94.23 Gastrostomy malfunction (principal)
CPT/HCPCS: 36415; 43762; 49450; 74018-TC-FY; 74176-TC; 80053; 85025; 85610; 85730; 86850; 86900; 86901; 93005; 93010; 96374; 96375; 99285-25; J0131

== ENCOUNTER 2023-09-17 15:36 | Inpatient (IN) | payer OTHER ==
[2023-09-17] MEDS ORDERED: ALBUTEROL SO4 2.5/IPRATROPIUM 0.5 INH SOL 3 ML VIAL.NEB. NEB ONE (17:04)
[2023-09-17] MEDS ORDERED: ACETAMINOPHEN INJECTION 100 ML IVPB ONE (17:04)
[2023-09-17 17:05] LABS: BASO % 0.9 % (0-2.0); HEMATOCRIT 36.3 % (32.4-45.2); LYMPH % 28.6 % (8-40); MCH 24.3 pg (25.7-33.7); MCHC 30.3 g/dl (32.0-36.0); MEAN PLT VOLUME 8.6 fl (7.5-11.1); MONO % 8.7 % (3.8-10.2); NEUT % 57.8 % (42.8-82.8); PLATELET COUNT 364 10^3/uL (134-434); RBC 4.54 M/mm3 (3.60-5.2); RDW 19.3 % (11.6-15.6); WHITE BLOOD COUNT 6.3 K/mm3 (4.0-10.0)
[2023-09-17] MEDS: ALBUTEROL SO4 2.5/IPRATROPIUM 0.5 INH SOL 3 ML VIAL.NEB. NEB SCH ×2 (17:06→18:53)
[2023-09-17] MEDS: ACETAMINOPHEN 1000 MG/100 ML BAG IVPB ONE (17:06)
[2023-09-17 17:08] LABS: VENOUS BASE EXCESS 6.2 mmol/L (-2-2); VENOUS O2 SATURATION 57.3 % (70-80); VENOUS PH 7.311 (7.310-7.410)
[2023-09-17 17:12] LABS: INR 0.94 (0.83-1.09); PROTHROMBIN TIME (PATIENT) 10.8 SEC (9.7-13.0)
[2023-09-17 17:15] LABS: ACTIVATED PTT 26.5 SECONDS (25.2-36.5)
[2023-09-17 17:27] LABS: POTASSIUM 5.3 mmol/L (3.5-5.1)
[2023-09-17 17:31] LABS: ALBUMIN 3.1 g/dl (3.4-5.0); BLOOD UREA NITROGEN 31.7 mg/dL (7-18); CALCIUM 9.3 mg/dL (8.5-10.1)
[2023-09-17 17:34] LABS: CREATININE 0.5 mg/dL (0.55-1.3)
[2023-09-17 17:36] LABS: BILIRUBIN,TOTAL 0.4 mg/dL (0.2-1); TOT PROT 8.1 g/dl (6.4-8.2)
[2023-09-17] MEDS: ONDANSETRON 4 MG/2 ML VIAL IVPUSH ONE (17:41)
[2023-09-17 17:42] LABS: VENOUS PCO2 70.1 mmHg (38-52)
[2023-09-17] MEDS ORDERED: ONDANSETRON 4 MG/2 ML VIAL ONE (17:42)
[2023-09-17] MEDS: methylPREDNISolone NA SUCC 125 MG/2 ML VIAL IVPB ONE (18:53)
[2023-09-17] MEDS ORDERED: methylPREDNISolone NA SUCC 125 MG/2 ML VIAL ONE (19:04)
[2023-09-17 19:59] LABS: VENOUS O2 SATURATION 74.6 % (70-80); VENOUS PH 7.273 (7.310-7.410)
[2023-09-17 21:30] LABS: EPI CELLS 15 /uL (0-25.1); HYALINE CASTS 2 /uL (0-3.1); URINE APPEARANCE Cloudy; URINE BACTERIA 139 /uL (0-1359); URINE BILIRUBIN Negative (NEGATIVE); URINE COLOR Yellow; URINE GLUCOSE (UA) Negative (NEGATIVE); URINE KETONE Negative (NEGATIVE); URINE LEUK ESTERASE Large (NEGATIVE); URINE NITRITE Negative (NEGATIVE); URINE PROTEIN 30 (NEGATIVE); URINE UROBILINOGEN 0.2 mg/dL (0.2-1.0); URINE WBC 3845 /uL (0-25.8)
[2023-09-17 22:04] LABS: URINE RBC 269.3 /uL (0-23.9); YEAST PRESENT (NEGATIVE)
[2023-09-17] MEDS ORDERED: VANCOMYCIN 1 GRAM (PRE-DOCKED) 1,000 MG/250 ML BAG IVPB ONE (22:10)
[2023-09-17] MEDS: VANCOMYCIN 1,000 MG in DEXTROSE 5%-WATER - 250 ML IVPB ONE (22:16)
[2023-09-18 03:29] LABS: ARTERIAL BLD GAS O2 SATURATION 95.8 % (95-98); ARTERIAL BLOOD GAS BASE EXCESS 4.1 mmol/L (-2-2); ARTERIAL BLOOD GAS PO2 84.2 mmHg (80-100); ARTERIAL BLOOD GAS pH 7.361 (7.350-7.450)
[2023-09-18 03:30] LABS: VENT MODE S/T; VENT RATE 18
[2023-09-18] MEDS ORDERED: PIPERACILLIN/TAZOB 3.375 GM 3.375 GM/50 ML BAG IVPB ONE (03:53)
[2023-09-18] MEDS: PIPERACILLIN/TAZOB 3.375 GM 3.375 GM in DEXTROSE 5%-WATER - 50 ML IVPB SCH ×2 (03:57→19:40)
[2023-09-18] MEDS ORDERED: ACETAMINOPHEN INJECTION 100 ML IVPB ONE (07:14)
[2023-09-18] MEDS: ACETAMINOPHEN 1000 MG/100 ML BAG IVPB ONE (07:19)
[2023-09-18] MEDS ORDERED: ACETAMINOPHEN 1000 MG/100 ML BAG IVPB PRN (08:43)
[2023-09-18 10:33] LABS: N-TERMINAL BNP 274.7 pg/ml (5-450)
[2023-09-18] MEDS: ENOXAPARIN NA (PORCINE) 40 MG/0.4 ML DISP.SYRIN SQ SCH (10:35)
[2023-09-18] MEDS: AMINO ACIDS/PROTEIN HYDROLYS 30 ML LIQUID.PKT PO SCH (15:38)
[2023-09-18] MEDS: ACETAMINOPHEN 650 MG/20.3 ML ORAL SOLUTION (CUPS) GT PRN (15:46)
[2023-09-18] MEDS: ALBUTEROL SO4 2.5/IPRATROPIUM 0.5 INH SOL 3 ML VIAL.NEB. NEB SCH (16:33)
[2023-09-18] MEDS: DULoxetine HCL 30 MG CAPSULE.DR PO SCH ×2 (18:29→18:49)
[2023-09-18] MEDS: ONDANSETRON 4 MG TABLET PO SCH (18:29)
[2023-09-18] MEDS: oxyCODONE HCL 5 MG TABLET PO PRN (20:34)
[2023-09-18] MEDS: FAMOTIDINE 20 MG TABLET PEG SCH (22:26)
[2023-09-18] MEDS: DOCUSATE NA 100 MG/10 ML UNIT-DOSE CUPS PO SCH (22:26)
[2023-09-18] MEDS: SIMETHICONE 80 MG TAB.CHEW (FP) PO SCH (22:26)
[2023-09-18] MEDS: MELATONIN 5 MG TABLETS GT SCH (22:26)
[2023-09-18] MEDS: BACLOFEN 10 MG TABLET (FP) PO SCH (22:26)
[2023-09-18] MEDS: GABAPENTIN 250 MG/5 ML ORAL SOLUTION, 470 ML BOTTLE GT SCH (22:26)
[2023-09-18] MEDS: NYSTATIN POWDER 100,000 UNITS/GM - 15 GM TOPICAL POWDER TP SCH (23:56)
[2023-09-19] MEDS: hydrOXYzine PAMOATE 25 MG CAPSULE (FP) PO ONE (00:54)
[2023-09-19 06:16] LABS: ARTERIAL BLD GAS O2 SATURATION 96.1 % (95-98); ARTERIAL BLOOD GAS pH 7.373 (7.350-7.450)
[2023-09-19 06:21] LABS: ALLENS TEST POSITIVE
[2023-09-19 07:50] LABS: HEMATOCRIT 35.1 % (32.4-45.2); HEMOGLOBIN 10.6 GM/dL (10.7-15.3); MCH 24.2 pg (25.7-33.7); MCHC 30.2 g/dl (32.0-36.0); MEAN CELL VOLUME 80.1 fl (80-96); MEAN PLT VOLUME 8.8 fl (7.5-11.1); PLATELET COUNT 354 10^3/uL (134-434); RBC 4.38 M/mm3 (3.60-5.2); RDW 19.4 % (11.6-15.6); WHITE BLOOD COUNT 7.6 K/mm3 (4.0-10.0)
[2023-09-19 08:08] LABS: POTASSIUM 4.2 mmol/L (3.5-5.1)
[2023-09-19 08:23] LABS: BLOOD UREA NITROGEN 34.5 mg/dL (7-18); CALCIUM 9.1 mg/dL (8.5-10.1)
[2023-09-19 08:24] LABS: ALBUMIN 3.3 g/dl (3.4-5.0); MAGNESIUM 2.4 mg/dL (1.8-2.4)
[2023-09-19 08:27] LABS: CREATININE 0.6 mg/dL (0.55-1.3); PHOSPHOROUS 5.1 mg/dL (2.5-4.9)
[2023-09-19 08:28] LABS: BILIRUBIN,TOTAL 0.5 mg/dL (0.2-1); TOT PROT 7.9 g/dl (6.4-8.2)
[2023-09-19] MEDS: MAGNESIUM HYDROX 2400MG/30ML ORAL SUSPENSION 30 ML CUP GT SCH (10:52)
[2023-09-19] MEDS: POLYETHYLENE GLYCOL (HEALTHYLAX) 3350 17 GM PACKET PO SCH (10:52)
[2023-09-19] MEDS: PIPERACILLIN/TAZOB 3.375 GM 3.375 GM in DEXTROSE 5%-WATER - 50 ML IVPB SCH (17:08)
[2023-09-19] MEDS: LACTOBACILLUS ACIDOPHILUS 1 TABLET PO SCH (21:36)
[2023-09-20] MEDS: VANCOMYCIN ORAL SOLUTION 125 MG/2.5 ML PO SCH (00:16)
[2023-09-20] MEDS: VANCOMYCIN 250 MG/5 ML ORAL SOLUTION (RESTRICTED TO ID ONLY) PO SCH (04:25)
[2023-09-20 07:32] LABS: BASO % 1.1 % (0-2.0); EOS % 3.2 % (0-4.5); HEMATOCRIT 37.1 % (32.4-45.2); HEMOGLOBIN 11.4 GM/dL (10.7-15.3); MCH 24.5 pg (25.7-33.7); MCHC 30.6 g/dl (32.0-36.0); MEAN CELL VOLUME 79.9 fl (80-96); MEAN PLT VOLUME 8.9 fl (7.5-11.1); MONO % 10.4 % (3.8-10.2); NEUT % 62.3 % (42.8-82.8); PLATELET COUNT 330 10^3/uL (134-434); RBC 4.65 M/mm3 (3.60-5.2); RDW 19.4 % (11.6-15.6); WHITE BLOOD COUNT 5.8 K/mm3 (4.0-10.0)
[2023-09-20 07:47] LABS: POTASSIUM 4.5 mmol/L (3.5-5.1)
[2023-09-20 07:50] LABS: CALCIUM 9.4 mg/dL (8.5-10.1)
[2023-09-20 07:51] LABS: ALBUMIN 3.3 g/dl (3.4-5.0); MAGNESIUM 2.7 mg/dL (1.8-2.4)
[2023-09-20 07:54] LABS: CREATININE 0.5 mg/dL (0.55-1.3); PHOSPHOROUS 3.9 mg/dL (2.5-4.9)
[2023-09-20 07:56] LABS: BILIRUBIN,TOTAL 0.8 mg/dL (0.2-1)
[2023-09-21 08:36] LABS: BASO % 0.9 % (0-2.0); EOS % 4.7 % (0-4.5); HEMATOCRIT 34.8 % (32.4-45.2); HEMOGLOBIN 10.8 GM/dL (10.7-15.3); LYMPH % 22.1 % (8-40); MCH 24.5 pg (25.7-33.7); MEAN CELL VOLUME 79.2 fl (80-96); MEAN PLT VOLUME 8.9 fl (7.5-11.1); MONO % 11.1 % (3.8-10.2); NEUT % 61.2 % (42.8-82.8); PLATELET COUNT 340 10^3/uL (134-434); RDW 19.1 % (11.6-15.6); WHITE BLOOD COUNT 5.6 K/mm3 (4.0-10.0)
[2023-09-21 08:38] LABS: POTASSIUM 4.4 mmol/L (3.5-5.1)
[2023-09-21 08:41] LABS: HEMATOCRIT 34.3 % (32.4-45.2); HEMOGLOBIN 10.7 GM/dL (10.7-15.3); MCH 24.6 pg (25.7-33.7); MCHC 31.1 g/dl (32.0-36.0); MEAN CELL VOLUME 79.3 fl (80-96); PLATELET COUNT 350 10^3/uL (134-434); RBC 4.32 M/mm3 (3.60-5.2); RDW 19.1 % (11.6-15.6); WHITE BLOOD COUNT 5.7 K/mm3 (4.0-10.0)
[2023-09-21 08:44] LABS: CALCIUM 9.1 mg/dL (8.5-10.1)
[2023-09-21 08:45] LABS: ALBUMIN 3.3 g/dl (3.4-5.0); BLOOD UREA NITROGEN 23.5 mg/dL (7-18); MAGNESIUM 2.7 mg/dL (1.8-2.4)
[2023-09-21 08:48] LABS: CREATININE 0.6 mg/dL (0.55-1.3); PHOSPHOROUS 4.4 mg/dL (2.5-4.9)
[2023-09-21 08:49] LABS: TOT PROT 7.8 g/dl (6.4-8.2)
[2023-09-21 08:50] LABS: BILIRUBIN,TOTAL 0.9 mg/dL (0.2-1)
[2023-09-22 07:58] LABS: HEMATOCRIT 35.8 % (32.4-45.2); HEMOGLOBIN 10.8 GM/dL (10.7-15.3); MCH 24.3 pg (25.7-33.7); MCHC 30.2 g/dl (32.0-36.0); MEAN CELL VOLUME 80.3 fl (80-96); PLATELET COUNT 298 10^3/uL (134-434); RBC 4.45 M/mm3 (3.60-5.2); RDW 19.5 % (11.6-15.6); WHITE BLOOD COUNT 6.2 K/mm3 (4.0-10.0)
[2023-09-22 08:15] LABS: POTASSIUM 4.4 mmol/L (3.5-5.1)
[2023-09-22 08:18] LABS: ALBUMIN 3.1 g/dl (3.4-5.0); CALCIUM 8.8 mg/dL (8.5-10.1)
[2023-09-22 08:19] LABS: MAGNESIUM 2.5 mg/dL (1.8-2.4)
[2023-09-22 08:21] LABS: CREATININE 0.5 mg/dL (0.55-1.3); PHOSPHOROUS 3.5 mg/dL (2.5-4.9)
[2023-09-22 08:23] LABS: BILIRUBIN,TOTAL 0.9 mg/dL (0.2-1); TOT PROT 7.6 g/dl (6.4-8.2)
[2023-09-23 08:24] LABS: HEMATOCRIT 34.5 % (32.4-45.2); HEMOGLOBIN 10.6 GM/dL (10.7-15.3); MCH 24.3 pg (25.7-33.7); MCHC 30.6 g/dl (32.0-36.0); MEAN CELL VOLUME 79.3 fl (80-96); MEAN PLT VOLUME 9.1 fl (7.5-11.1); PLATELET COUNT 307 10^3/uL (134-434); RBC 4.35 M/mm3 (3.60-5.2); RDW 19.3 % (11.6-15.6); WHITE BLOOD COUNT 5.7 K/mm3 (4.0-10.0)
[2023-09-23 08:48] LABS: POTASSIUM 4.8 mmol/L (3.5-5.1)
[2023-09-23 09:03] LABS: ALBUMIN 3.1 g/dl (3.4-5.0); BLOOD UREA NITROGEN 23.5 mg/dL (7-18)
[2023-09-23 09:05] LABS: CALCIUM 9.2 mg/dL (8.5-10.1); MAGNESIUM 2.3 mg/dL (1.8-2.4)
[2023-09-23 09:06] LABS: PHOSPHOROUS 3.8 mg/dL (2.5-4.9)
[2023-09-23 09:07] LABS: BILIRUBIN,TOTAL 0.7 mg/dL (0.2-1); CREATININE 0.4 mg/dL (0.55-1.3)
[2023-09-23 09:09] LABS: TOT PROT 7.3 g/dl (6.4-8.2)
[2023-09-23] MEDS ORDERED: ERTAPENEM SODIUM 1 GM in SODIUM CHLORIDE 50 ML IVPB SCH (10:00)
[2023-09-23 10:58] VITALS: BMI 30.1
[2023-09-24 07:00] LABS: HEMOGLOBIN 10.9 GM/dL (10.7-15.3); MCH 24.3 pg (25.7-33.7); MCHC 30.4 g/dl (32.0-36.0); MEAN CELL VOLUME 79.9 fl (80-96); PLATELET COUNT 292 10^3/uL (134-434); RBC 4.51 M/mm3 (3.60-5.2); RDW 19.5 % (11.6-15.6); WHITE BLOOD COUNT 6.5 K/mm3 (4.0-10.0)
[2023-09-24 07:21] LABS: POTASSIUM 4.6 mmol/L (3.5-5.1)
[2023-09-24 07:28] LABS: BLOOD UREA NITROGEN 22.3 mg/dL (7-18); CALCIUM 9.5 mg/dL (8.5-10.1)
[2023-09-24 07:29] LABS: ALBUMIN 3.2 g/dl (3.4-5.0); MAGNESIUM 2.2 mg/dL (1.8-2.4)
[2023-09-24 07:30] LABS: PHOSPHOROUS 3.9 mg/dL (2.5-4.9)
[2023-09-24 07:31] LABS: TOT PROT 7.3 g/dl (6.4-8.2)
[2023-09-24 07:32] LABS: BILIRUBIN,TOTAL 0.5 mg/dL (0.2-1); CREATININE 0.4 mg/dL (0.55-1.3)
[2023-09-24 13:17] LABS: ARTERIAL BLD GAS O2 SATURATION 93.9 % (95-98); ARTERIAL BLOOD GAS BASE EXCESS 4.6 mmol/L (-2-2); ARTERIAL BLOOD GAS PO2 71.4 mmHg (80-100); ARTERIAL BLOOD GAS pH 7.382 (7.350-7.450)
[2023-09-24 13:18] LABS: ALLENS TEST POSITIVE
[2023-09-26 08:25] LABS: HEMATOCRIT 34.4 % (32.4-45.2); HEMOGLOBIN 10.4 GM/dL (10.7-15.3); MCHC 30.3 g/dl (32.0-36.0); MEAN CELL VOLUME 79.3 fl (80-96); MEAN PLT VOLUME 9.6 fl (7.5-11.1); PLATELET COUNT 294 10^3/uL (134-434); RBC 4.34 M/mm3 (3.60-5.2); RDW 19.5 % (11.6-15.6); WHITE BLOOD COUNT 5.1 K/mm3 (4.0-10.0)
[2023-09-26 08:39] LABS: POTASSIUM 4.5 mmol/L (3.5-5.1)
[2023-09-26 08:41] LABS: CALCIUM 9.4 mg/dL (8.5-10.1)
[2023-09-26 08:42] LABS: BLOOD UREA NITROGEN 21.7 mg/dL (7-18); MAGNESIUM 2.3 mg/dL (1.8-2.4)
[2023-09-26 08:45] LABS: CREATININE 0.5 mg/dL (0.55-1.3); PHOSPHOROUS 4.1 mg/dL (2.5-4.9)
[2023-09-26 08:47] LABS: BILIRUBIN,TOTAL 0.5 mg/dL (0.2-1); TOT PROT 6.9 g/dl (6.4-8.2)
[2023-09-26] MEDS: AMINO ACIDS 4.25%/D5W 1,000 ML IV SCH (20:06)
[2023-09-27 06:55] LABS: BASO % 2.2 % (0-2.0); EOS % 7.5 % (0-4.5); HEMATOCRIT 34.6 % (32.4-45.2); HEMOGLOBIN 10.5 GM/dL (10.7-15.3); LYMPH % 26.2 % (8-40); MCH 24.4 pg (25.7-33.7); MCHC 30.4 g/dl (32.0-36.0); MEAN CELL VOLUME 80.1 fl (80-96); MEAN PLT VOLUME 9.1 fl (7.5-11.1); MONO % 12.3 % (3.8-10.2); NEUT % 51.8 % (42.8-82.8); PLATELET COUNT 270 10^3/uL (134-434); RBC 4.32 M/mm3 (3.60-5.2); RDW 19.4 % (11.6-15.6); WHITE BLOOD COUNT 4.3 K/mm3 (4.0-10.0)
[2023-09-27 07:12] LABS: POTASSIUM 4.4 mmol/L (3.5-5.1)
[2023-09-27 07:15] LABS: CALCIUM 9.4 mg/dL (8.5-10.1)
[2023-09-27 07:16] LABS: BLOOD UREA NITROGEN 21.7 mg/dL (7-18); MAGNESIUM 2.2 mg/dL (1.8-2.4)
[2023-09-27 07:19] LABS: CREATININE 0.5 mg/dL (0.55-1.3); PHOSPHOROUS 4.4 mg/dL (2.5-4.9)
[2023-09-27 07:20] LABS: BILIRUBIN,TOTAL 0.5 mg/dL (0.2-1); TOT PROT 7.1 g/dl (6.4-8.2)
[2023-09-27 08:21] LABS: HEMATOCRIT 35.6 % (32.4-45.2); HEMOGLOBIN 10.7 GM/dL (10.7-15.3); MCH 24.1 pg (25.7-33.7); MEAN CELL VOLUME 80.3 fl (80-96); MEAN PLT VOLUME 9.5 fl (7.5-11.1); PLATELET COUNT 289 10^3/uL (134-434); RBC 4.43 M/mm3 (3.60-5.2); RDW 19.4 % (11.6-15.6); WHITE BLOOD COUNT 5.1 K/mm3 (4.0-10.0)
[2023-09-27] MEDS: traMADol HCL 50 MG TABLET PO PRN (10:31)
[2023-09-28 08:11] LABS: HEMATOCRIT 34.4 % (32.4-45.2); HEMOGLOBIN 10.8 GM/dL (10.7-15.3); MCH 24.6 pg (25.7-33.7); MCHC 31.3 g/dl (32.0-36.0); MEAN CELL VOLUME 78.5 fl (80-96); MEAN PLT VOLUME 9.5 fl (7.5-11.1); PLATELET COUNT 294 10^3/uL (134-434); RBC 4.38 M/mm3 (3.60-5.2); RDW 19.6 % (11.6-15.6); WHITE BLOOD COUNT 4.5 K/mm3 (4.0-10.0)
[2023-09-28 08:48] LABS: POTASSIUM 4.3 mmol/L (3.5-5.1)
[2023-09-28 08:54] LABS: ALBUMIN 3.2 g/dl (3.4-5.0); CALCIUM 9.4 mg/dL (8.5-10.1); MAGNESIUM 2.3 mg/dL (1.8-2.4)
[2023-09-28 08:55] LABS: BLOOD UREA NITROGEN 21.6 mg/dL (7-18)
[2023-09-28 08:57] LABS: CREATININE 0.5 mg/dL (0.55-1.3); PHOSPHOROUS 3.1 mg/dL (2.5-4.9)
[2023-09-28 08:58] LABS: BILIRUBIN,TOTAL 0.5 mg/dL (0.2-1); TOT PROT 7.7 g/dl (6.4-8.2)
[2023-09-29] MEDS: ceFAZolin SODIUM 1 GM VIAL IVPB ONE
[2023-09-29 08:25] LABS: HEMOGLOBIN 10.6 GM/dL (10.7-15.3); MCH 24.6 pg (25.7-33.7); MCHC 31.2 g/dl (32.0-36.0); MEAN CELL VOLUME 78.6 fl (80-96); MEAN PLT VOLUME 9.7 fl (7.5-11.1); PLATELET COUNT 287 10^3/uL (134-434); RBC 4.32 M/mm3 (3.60-5.2); RDW 19.5 % (11.6-15.6); WHITE BLOOD COUNT 4.2 K/mm3 (4.0-10.0)
[2023-09-29 08:37] LABS: POTASSIUM 4.2 mmol/L (3.5-5.1)
[2023-09-29 08:44] LABS: ALBUMIN 3.1 g/dl (3.4-5.0)
[2023-09-29 08:45] LABS: BLOOD UREA NITROGEN 21.4 mg/dL (7-18); CALCIUM 9.2 mg/dL (8.5-10.1); MAGNESIUM 2.4 mg/dL (1.8-2.4)
[2023-09-29 08:49] LABS: BILIRUBIN,TOTAL 0.3 mg/dL (0.2-1); CREATININE 0.4 mg/dL (0.55-1.3); TOT PROT 7.1 g/dl (6.4-8.2)
[2023-09-29] MEDS: DEXTROSE 50%-WATER 25 GM/50 ML DISP.SYRIN IVPUSH ONE (12:45)
[2023-09-29 14:08] LABS: INR 0.9 (0.83-1.09); PROTHROMBIN TIME (PATIENT) 10.4 SEC (9.7-13.0)
[2023-09-29] MEDS: DEXTROSE 5%-0.45% SALINE 1,000 ML IV SCH (14:22)
[2023-09-29 16:18] LABS: POTASSIUM 4.6 mmol/L (3.5-5.1)
[2023-09-29 16:20] LABS: CALCIUM 9.7 mg/dL (8.5-10.1)
[2023-09-29 16:22] LABS: ALBUMIN 3.3 g/dl (3.4-5.0); BLOOD UREA NITROGEN 25.1 mg/dL (7-18)
[2023-09-29 16:24] LABS: CREATININE 0.6 mg/dL (0.55-1.3)
[2023-09-29 16:25] LABS: BILIRUBIN,TOTAL 0.3 mg/dL (0.2-1); TOT PROT 7.6 g/dl (6.4-8.2)
[2023-09-29] MEDS ORDERED: ALBUTEROL SO4 HFA INHALER IH ONE (18:37)
[2023-09-29] MEDS ORDERED: ETOMIDATE 20 MG/10 ML VIAL IVPUSH ONE (18:48)
[2023-09-29] MEDS ORDERED: GLYCOPYRROLATE 0.2 MG/1 ML VIAL ONE (18:50)
[2023-09-29] MEDS ORDERED: ALBUTEROL SO4 0.083% IH SOL 2.5 MG/3 ML VIAL.NEB. NEB ONE (18:56)
[2023-09-29] MEDS: VANCOMYCIN 1 GM in NS (PRE-DOCKED) 1,000 MG/250 ML (RESTRICTED TO ID ONLY) IVPB ONE (19:18)
[2023-09-29] MEDS ORDERED: ONDANSETRON 4 MG/2 ML VIAL IVPUSH PRN (19:59)
[2023-09-29] MEDS ORDERED: ACETAMINOPHEN INJECTION 100 ML IVPB ONE (20:07)
[2023-09-29] MEDS: ACETAMINOPHEN 1000 MG/100 ML BAG IVPB ONE (20:10)
[2023-09-29] MEDS ORDERED: DEXTROSE 5%-0.45% SALINE 1,000 ML IV SCH (20:31)
[2023-09-29] MEDS: LACTATED RINGERS SOLUTION 1,000 ML IV SCH (20:48)
[2023-09-29] MEDS: MELATONIN 5 MG TABLETS GT SCH (22:40)
[2023-09-29] MEDS: LACTOBACILLUS ACIDOPHILUS 1 TABLET PO SCH (22:40)
[2023-09-29] MEDS: SIMETHICONE 80 MG TAB.CHEW (FP) PO SCH (22:40)
[2023-09-29] MEDS: FAMOTIDINE 20 MG TABLET PEG SCH (22:40)
[2023-09-29] MEDS: BACLOFEN 10 MG TABLET (FP) PO SCH (22:41)
[2023-09-29] MEDS: NYSTATIN POWDER 100,000 UNITS/GM - 15 GM TOPICAL POWDER TP SCH (22:41)
[2023-09-30] MEDS: GABAPENTIN 250 MG/5 ML ORAL SOLUTION, 470 ML BOTTLE GT SCH (00:44)
[2023-09-30] MEDS: VANCOMYCIN ORAL SOLUTION 125 MG/2.5 ML PO SCH (00:46)
[2023-09-30] MEDS: ONDANSETRON 4 MG/2 ML VIAL IVPUSH ONE (05:32)
[2023-09-30] MEDS: ONDANSETRON 4 MG TABLET PO SCH (06:31)
[2023-09-30] MEDS: ACETAMINOPHEN 650 MG/20.3 ML ORAL SOLUTION (CUPS) GT PRN (06:35)
[2023-09-30 07:32] LABS: HEMATOCRIT 36.6 % (32.4-45.2); HEMOGLOBIN 11.3 GM/dL (10.7-15.3); MCH 24.6 pg (25.7-33.7); MCHC 30.8 g/dl (32.0-36.0); MEAN CELL VOLUME 79.7 fl (80-96); MEAN PLT VOLUME 9.9 fl (7.5-11.1); PLATELET COUNT 264 10^3/uL (134-434); RBC 4.59 M/mm3 (3.60-5.2); RDW 19.6 % (11.6-15.6); WHITE BLOOD COUNT 13.5 K/mm3 (4.0-10.0)
[2023-09-30 07:47] LABS: MAGNESIUM 2.4 mg/dL (1.8-2.4)
[2023-09-30 07:50] LABS: PHOSPHOROUS 3.1 mg/dL (2.5-4.9)
[2023-09-30] MEDS: ALBUTEROL SO4 2.5/IPRATROPIUM 0.5 INH SOL 3 ML VIAL.NEB. NEB SCH (08:39)
[2023-09-30] MEDS: MAGNESIUM HYDROX 2400MG/30ML ORAL SUSPENSION 30 ML CUP GT SCH (10:34)
[2023-09-30] MEDS: ENOXAPARIN NA (PORCINE) 40 MG/0.4 ML DISP.SYRIN SQ SCH (10:35)
[2023-09-30] MEDS: AMINO ACIDS/PROTEIN HYDROLYS 30 ML LIQUID.PKT PO SCH (10:35)
[2023-09-30] MEDS: DULoxetine HCL 30 MG CAPSULE.DR PO SCH (10:35)
[2023-09-30] MEDS: traMADol HCL 50 MG TABLET PO PRN (21:11)
[2023-10-01] MEDS: LIDOCAINE 5% TOPICAL PATCH TP ONE (05:01)
[2023-10-01] MEDS: oxyCODONE HCL 5 MG TABLET PO ONE (05:01)
[2023-10-01] MEDS ORDERED: oxyCODONE HCL 5 MG TABLET PO PRN ×2 (06:44→07:48)
[2023-10-01 07:57] LABS: POTASSIUM 4.6 mmol/L (3.5-5.1)
[2023-10-01 08:01] LABS: CALCIUM 9.4 mg/dL (8.5-10.1)
[2023-10-01 08:02] LABS: ALBUMIN 2.8 g/dl (3.4-5.0); BLOOD UREA NITROGEN 26.9 mg/dL (7-18); MAGNESIUM 2.6 mg/dL (1.8-2.4)
[2023-10-01 08:05] LABS: CREATININE 0.7 mg/dL (0.55-1.3); PHOSPHOROUS 2.7 mg/dL (2.5-4.9)
[2023-10-01 08:06] LABS: BILIRUBIN,TOTAL 0.4 mg/dL (0.2-1); TOT PROT 6.7 g/dl (6.4-8.2)
[2023-10-01 08:09] LABS: MCH 24.9 pg (25.7-33.7); MCHC 31.2 g/dl (32.0-36.0); MEAN CELL VOLUME 79.7 fl (80-96); MEAN PLT VOLUME 9.9 fl (7.5-11.1); PLATELET COUNT 242 10^3/uL (134-434); RBC 4.02 M/mm3 (3.60-5.2); RDW 19.9 % (11.6-15.6); WHITE BLOOD COUNT 10.1 K/mm3 (4.0-10.0)
[2023-10-01] MEDS ORDERED: PIPERACILLIN/TAZOB 3.375 GM 3.375 GM in DEXTROSE 5%-WATER - 50 ML IVPB SCH ×2 (09:15→15:00)
[2023-10-01] MEDS ORDERED: PIPERACILLIN/TAZOB 3.375 GM 3.375 GM in DEXTROSE 5%-WATER - 50 ML IVPB ONE (10:20)
[2023-10-01] MEDS ORDERED: VANCOMYCIN 1,000 MG in DEXTROSE 5%-WATER - 250 ML IVPB ONE (10:33)
[2023-10-01] MEDS: ACETAMINOPHEN 1000 MG/100 ML BAG IVPB PRN (10:45)
[2023-10-01] MEDS: BACITRACIN ZINC 15 GM TUBE TOPICAL OINTMENT TP SCH (10:46)
[2023-10-01] MEDS: PIPERACILLIN/TAZOB 3.375 GM 3.375 GM in DEXTROSE 5%-WATER - 50 ML IVPB SCH (13:12)
[2023-10-01] MEDS: CEFTRIAXONE 1 GM in DEXTROSE 5%-WATER - 50 ML IVPB SCH (14:53)
[2023-10-01] MEDS: LIDOCAINE PATCH REMOVAL MC ONE (18:14)
[2023-10-02 07:25] LABS: HEMATOCRIT 29.5 % (32.4-45.2); HEMOGLOBIN 9.2 GM/dL (10.7-15.3); MCH 24.6 pg (25.7-33.7); MEAN CELL VOLUME 79.2 fl (80-96); PLATELET COUNT 228 10^3/uL (134-434); RBC 3.73 M/mm3 (3.60-5.2); RDW 19.9 % (11.6-15.6); WHITE BLOOD COUNT 9.2 K/mm3 (4.0-10.0)
[2023-10-02 07:34] LABS: POTASSIUM 4.2 mmol/L (3.5-5.1)
[2023-10-02 07:38] LABS: ALBUMIN 2.7 g/dl (3.4-5.0); BLOOD UREA NITROGEN 27.2 mg/dL (7-18); MAGNESIUM 2.6 mg/dL (1.8-2.4)
[2023-10-02 07:41] LABS: CREATININE 0.7 mg/dL (0.55-1.3)
[2023-10-02 07:42] LABS: BILIRUBIN,TOTAL 0.4 mg/dL (0.2-1); TOT PROT 6.6 g/dl (6.4-8.2)
[2023-10-02] MEDS: ACETAMINOPHEN 1000 MG/100 ML BAG IVPB PRN (20:55)
[2023-10-03 07:45] LABS: HEMATOCRIT 32.2 % (32.4-45.2); HEMOGLOBIN 9.8 GM/dL (10.7-15.3); MCH 24.4 pg (25.7-33.7); MCHC 30.6 g/dl (32.0-36.0); MEAN CELL VOLUME 79.6 fl (80-96); MEAN PLT VOLUME 9.6 fl (7.5-11.1); PLATELET COUNT 234 10^3/uL (134-434); RBC 4.04 M/mm3 (3.60-5.2); WHITE BLOOD COUNT 6.1 K/mm3 (4.0-10.0)
[2023-10-03 08:03] LABS: CALCIUM 9.6 mg/dL (8.5-10.1)
[2023-10-03 08:04] LABS: ALBUMIN 2.8 g/dl (3.4-5.0); MAGNESIUM 2.6 mg/dL (1.8-2.4)
[2023-10-03 08:07] LABS: CREATININE 0.6 mg/dL (0.55-1.3); PHOSPHOROUS 4.2 mg/dL (2.5-4.9)
[2023-10-03 08:09] LABS: BILIRUBIN,TOTAL 0.4 mg/dL (0.2-1); TOT PROT 7.2 g/dl (6.4-8.2)
[2023-10-03] MEDS: PIPERACILLIN/TAZOB 3.375 GM 3.375 GM in DEXTROSE 5%-WATER - 50 ML IVPB SCH (10:04)
[2023-10-04 11:26] VITALS: RESP 18
[2023-10-04] MEDS: PIPERACILLIN/TAZOB 3.375 GM 3.375 GM in DEXTROSE 5%-WATER - 50 ML IVPB SCH (11:31)
[2023-10-04] MEDS: ACETAMINOPHEN 1000 MG/100 ML BAG IVPB PRN (12:22)
[2023-10-04 15:47] LABS: HEMATOCRIT 31.5 % (32.4-45.2); HEMOGLOBIN 9.7 GM/dL (10.7-15.3); MCH 24.1 pg (25.7-33.7); MCHC 30.6 g/dl (32.0-36.0); MEAN CELL VOLUME 78.8 fl (80-96); MEAN PLT VOLUME 9.4 fl (7.5-11.1); PLATELET COUNT 286 10^3/uL (134-434); RDW 20.2 % (11.6-15.6)
[2023-10-04 16:14] LABS: POTASSIUM 4.2 mmol/L (3.5-5.1)
[2023-10-04 16:17] LABS: ALBUMIN 2.7 g/dl (3.4-5.0); MAGNESIUM 2.7 mg/dL (1.8-2.4)
[2023-10-04 17:18] LABS: BILIRUBIN,TOTAL 0.3 mg/dL (0.2-1); CREATININE 0.8 mg/dL (0.55-1.3); PHOSPHOROUS 3.7 mg/dL (2.5-4.9); TOT PROT 7.1 g/dl (6.4-8.2)
[2023-10-05 09:57] VITALS: BP 101/68; PULSE 77; TEMP 98.4
== END 2023-10-05 11:48 | DRG 981 ==
LOC: JER 15:36 → JERBED 20:57 → J4W 09-18 08:38
PROVIDERS: ADMIT Internal Medicine; ATTEND Internal Medicine
PROC: 0T768DZ Dilation of Right Ureter with Intraluminal Device, Via Natural or Artificial Opening Endoscopic (ICD-10-PCS; 2023-09-29)
PROC: BT1DZZZ Fluoroscopy of Right Kidney, Ureter and Bladder (ICD-10-PCS; 2023-09-29)
PROC: 3E0K8GC Introduction of Other Therapeutic Substance into Genitourinary Tract, Via Natural or Artificial Opening Endoscopic (ICD-10-PCS; 2023-09-29)
PROC: 0TP98DZ Removal of Intraluminal Device from Ureter, Via Natural or Artificial Opening Endoscopic (ICD-10-PCS; 2023-09-29)
PROC: 0TCB8ZZ Extirpation of Matter from Bladder, Via Natural or Artificial Opening Endoscopic (ICD-10-PCS; principal; 2023-09-29 16:45)
PROC: 0T7B8DZ Dilation of Bladder with Intraluminal Device, Via Natural or Artificial Opening Endoscopic (ICD-10-PCS; 2023-09-29 16:45)
DX: J96.21 Acute and chronic respiratory failure with hypoxia (principal); R53.2 Functional quadriplegia; J44.1 Chronic obstructive pulmonary disease with (acute) exacerbation; R65.10 Systemic inflammatory response syndrome (SIRS) of non-infectious origin without acute organ dysfunction; N39.0 Urinary tract infection, site not specified; A04.72 Enterocolitis due to Clostridium difficile, not specified as recurrent; N13.6 Pyonephrosis; K56.7 Ileus, unspecified; J96.22 Acute and chronic respiratory failure with hypercapnia; G35 Multiple sclerosis; F03.90 Unspecified dementia, unspecified severity, without behavioral disturbance, psychotic disturbance, mood disturbance, and anxiety; J45.909 Unspecified asthma, uncomplicated; N21.0 Calculus in bladder; M79.7 Fibromyalgia; G47.33 Obstructive sleep apnea (adult) (pediatric); N20.0 Calculus of kidney
CPT/HCPCS: 0241U-QW; 36415; 36600; 71045-TC-FY; 74018-TC-FY; 74177-TC; 80048; 80053; 80061; 81003; 82803; 82962; 83036; 83605; 83690; 83735; 83880; 84100; 84443; 84484; 85025; 85027; 85610; 85730; 86850; 86900; 86901; 87040; 87070; 87075; 87077; 87086; 87186; 87205; 87324; 87449; 87493; 93005; 93010; 93306-TC; 94640; 94660; 94760; 99285-25; C1769; C2617; J0131; J0475; Q9967

== ENCOUNTER 2023-11-09 21:01 | Inpatient (IN) | payer OTHER ==
[2023-11-09 23:30] LABS: BASO % 0.3 % (0-2.0); EOS % 0.8 % (0-4.5); HEMATOCRIT 32.4 % (32.4-45.2); HEMOGLOBIN 10.3 GM/dL (10.7-15.3); LYMPH % 13.3 % (8-40); MCH 25.4 pg (25.7-33.7); MCHC 31.7 g/dl (32.0-36.0); MEAN CELL VOLUME 80.1 fl (80-96); MEAN PLT VOLUME 8.9 fl (7.5-11.1); MONO % 7.7 % (3.8-10.2); NEUT % 77.9 % (42.8-82.8); PLATELET COUNT 365 10^3/uL (134-434); RBC 4.04 M/mm3 (3.60-5.2); RDW 21.1 % (11.6-15.6); WHITE BLOOD COUNT 10.7 K/mm3 (4.0-10.0)
[2023-11-09 23:35] LABS: ADD RBC MORPHOLOGY YES
[2023-11-09 23:43] LABS: INR 1.04 (0.83-1.09); PROTHROMBIN TIME (PATIENT) 11.9 SEC (9.7-13.0)
[2023-11-09 23:46] LABS: ACTIVATED PTT 28.2 SECONDS (25.2-36.5)
[2023-11-09 23:52] LABS: CALCIUM 9.3 mg/dL (8.5-10.1); POTASSIUM 4.7 mmol/L (3.5-5.1)
[2023-11-09 23:54] LABS: BLOOD UREA NITROGEN 23.9 mg/dL (7-18)
[2023-11-09 23:57] LABS: CREATININE 0.6 mg/dL (0.55-1.3)
[2023-11-09] MEDS ORDERED: ACETAMINOPHEN INJECTION 100 ML IVPB ONE (23:58)
[2023-11-09 23:59] LABS: BILIRUBIN,TOTAL 0.5 mg/dL (0.2-1); TOT PROT 7.7 g/dl (6.4-8.2)
[2023-11-10] MEDS: ACETAMINOPHEN 1000 MG/100 ML BAG IVPB ONE
[2023-11-10] MEDS ORDERED: PIPERACILLIN/TAZOB 4.5 GM 4.5 GM/100 ML BAG IVPB ONE (00:18)
[2023-11-10] MEDS: PIPERACILLIN/TAZOB 4.5 GM 4.5 GM in DEXTROSE 5%-WATER 100 ML IVPB ONE (00:20)
[2023-11-10 00:58] LABS: ANISOCYTOSIS 0; MACROCYTOSIS 0
[2023-11-10 01:27] LABS: ERYTHROCYTE SEDIMENTATION RATE 96 mm/hr (0-30)
[2023-11-10] MEDS ORDERED: VANCOMYCIN 1 GRAM (PRE-DOCKED) 1,000 MG/250 ML BAG IVPB ONE (01:51)
[2023-11-10] MEDS: VANCOMYCIN 1,000 MG in DEXTROSE 5%-WATER - 250 ML IVPB ONE (02:05)
[2023-11-10] MEDS ORDERED: KETOROLAC TROMETHAMINE 15 MG/ML VIAL ONE (02:49)
[2023-11-10] MEDS: KETOROLAC TROMETHAMINE 15 MG/ML VIAL IVPUSH ONE (02:50)
[2023-11-10] MEDS: ONDANSETRON 4 MG/2 ML VIAL IVPUSH ONE (05:09)
[2023-11-10] MEDS ORDERED: LACTULOSE 20 GM/30 ML UDC (FOR ORAL USE ONLY) GT PRN (05:21)
[2023-11-10] MEDS ORDERED: [UNRECOGNIZED DRUG - OTHER] GT PRN (05:21)
[2023-11-10] MEDS ORDERED: ACETAMINOPHEN GT PRN (05:21)
[2023-11-10] MEDS ORDERED: ACETAMINOPHEN 650 MG/20.3 ML ORAL SOLUTION (CUPS) GT PRN (05:57)
[2023-11-10] MEDS: ALBUTEROL SO4 2.5/IPRATROPIUM 0.5 INH SOL 3 ML VIAL.NEB. NEB SCH (08:16)
[2023-11-10] MEDS: AMINO ACIDS/PROTEIN HYDROLYS 30 ML LIQUID.PKT PO SCH (08:59)
[2023-11-10] MEDS: DEXTROSE 5%-0.45% SALINE 1,000 ML IV SCH (09:05)
[2023-11-10] MEDS ORDERED: DULoxetine HCL 30 MG CAPSULE.DR PO SCH (10:00)
[2023-11-10] MEDS ORDERED: ENOXAPARIN NA (PORCINE) 40 MG/0.4 ML DISP.SYRIN SQ SCH (10:00)
[2023-11-10] MEDS ORDERED: PIPERACILLIN/TAZOB 4.5 GM 4.5 GM in DEXTROSE 5%-WATER 100 ML IVPB SCH (10:00)
[2023-11-10] MEDS: BACLOFEN 10 MG TABLET (FP) GT SCH (10:02)
[2023-11-10 10:16] LABS: BASO % 0.7 % (0-2.0); EOS % 3.6 % (0-4.5); HEMATOCRIT 33.3 % (32.4-45.2); HEMOGLOBIN 10.4 GM/dL (10.7-15.3); LYMPH % 18.5 % (8-40); MCH 25.4 pg (25.7-33.7); MCHC 31.2 g/dl (32.0-36.0); MEAN CELL VOLUME 81.4 fl (80-96); MEAN PLT VOLUME 8.9 fl (7.5-11.1); NEUT % 67.2 % (42.8-82.8); PLATELET COUNT 319 10^3/uL (134-434); RBC 4.09 M/mm3 (3.60-5.2); RDW 20.7 % (11.6-15.6); WHITE BLOOD COUNT 7.8 K/mm3 (4.0-10.0)
[2023-11-10] MEDS: PIPERACILLIN/TAZOB 4.5 GM 4.5 GM in DEXTROSE 5%-WATER 100 ML IVPB SCH ×2 (10:16→19:54)
[2023-11-10] MEDS: LIDOCAINE 4% PATCH TP SCH (10:16)
[2023-11-10 10:36] LABS: POTASSIUM 4.3 mmol/L (3.5-5.1)
[2023-11-10 10:42] LABS: ALBUMIN 2.8 g/dl (3.4-5.0); BLOOD UREA NITROGEN 24.2 mg/dL (7-18); CALCIUM 9.5 mg/dL (8.5-10.1)
[2023-11-10 10:43] LABS: MAGNESIUM 2.6 mg/dL (1.8-2.4)
[2023-11-10 10:45] LABS: CREATININE 0.8 mg/dL (0.55-1.3)
[2023-11-10 10:46] LABS: BILIRUBIN,TOTAL 0.5 mg/dL (0.2-1); TOT PROT 7.5 g/dl (6.4-8.2)
[2023-11-10] MEDS: IOHEXOL (OMNIPAQUE IV) 350 MG/ML - 100 ML BOTTLE GT ONE (14:21)
[2023-11-10] MEDS: BACITRACIN ZINC 15 GM TUBE TOPICAL OINTMENT TP SCH (14:58)
[2023-11-10] MEDS: NYSTATIN POWDER 100,000 UNITS/GM - 15 GM TOPICAL POWDER TP SCH (14:59)
[2023-11-10] MEDS: ACETAMINOPHEN 1000 MG/100 ML BAG IVPB PRN (15:00)
[2023-11-10] MEDS ORDERED: KETOROLAC TROMETHAMINE 15 MG/ML VIAL IVPUSH PRN (16:06)
[2023-11-10 17:13] LABS: EPI CELLS >36 /uL (0-25.1); HYALINE CASTS 1 /uL (0-3.1); PH,URINE 5.5 (5.0-8.0); URINE APPEARANCE CLEAR; URINE BACTERIA 2 /uL (0-1359); URINE BILIRUBIN NEGATIVE (NEGATIVE); URINE COLOR YELLOW; URINE GLUCOSE (UA) NEGATIVE (NEGATIVE); URINE KETONE NEGATIVE (NEGATIVE); URINE LEUK ESTERASE NEGATIVE (NEGATIVE); URINE NITRITE NEGATIVE (NEGATIVE); URINE PROTEIN 2+ (NEGATIVE); URINE RBC 26 /uL (0-23.9); URINE UROBILINOGEN 0.2 mg/dL (0.2-1.0)
[2023-11-10] MEDS: PIPERACILLIN/TAZOB 3.375 GM 3.375 GM in DEXTROSE 5%-WATER - 50 ML IVPB SCH (17:42)
[2023-11-10 18:19] LABS: URINE CRYSTALS MODERATE /hpf; URINE WBC 338.1 /uL (0-25.8); YEAST NONE SEEN (NEGATIVE)
[2023-11-10] MEDS: MAGNESIUM HYDROX 2400MG/30ML ORAL SUSPENSION 30 ML CUP GT SCH (19:53)
[2023-11-10] MEDS: ASCORBIC ACID 500 MG TABLET (FP) GT SCH (19:53)
[2023-11-10] MEDS: FAMOTIDINE 20 MG TABLET NGT SCH (19:53)
[2023-11-10] MEDS: DULoxetine HCL 30 MG CAPSULE.DR PO SCH (19:53)
[2023-11-10] MEDS: GABAPENTIN 250 MG/5 ML ORAL SOLUTION, 470 ML BOTTLE GT SCH (19:54)
[2023-11-10] MEDS: MELATONIN 5 MG TABLETS GT SCH (21:12)
[2023-11-10] MEDS: KETOROLAC TROMETHAMINE 15 MG/ML VIAL IVPUSH PRN (21:29)
[2023-11-10] MEDS ORDERED: LACTOBACILLUS ACIDOPHILUS 1 TABLET NGT SCH (22:00)
[2023-11-10] MEDS ORDERED: LACTOBACILLUS ACIDOPHILUS 1 TABLET PO SCH (22:00)
[2023-11-10] MEDS: LIDOCAINE PATCH REMOVAL MC SCH (22:15)
[2023-11-11] MEDS: ONDANSETRON 4 MG/2 ML VIAL IVPUSH PRN (04:36)
[2023-11-11 08:02] LABS: HEMATOCRIT 31.1 % (32.4-45.2); HEMOGLOBIN 9.7 GM/dL (10.7-15.3); MCH 25.4 pg (25.7-33.7); MCHC 31.3 g/dl (32.0-36.0); MEAN CELL VOLUME 81.3 fl (80-96); PLATELET COUNT 364 10^3/uL (134-434); RBC 3.82 M/mm3 (3.60-5.2); RDW 20.6 % (11.6-15.6); WHITE BLOOD COUNT 6.1 K/mm3 (4.0-10.0)
[2023-11-11 08:26] LABS: POTASSIUM 4.1 mmol/L (3.5-5.1)
[2023-11-11 08:31] LABS: ALBUMIN 2.8 g/dl (3.4-5.0); CALCIUM 8.9 mg/dL (8.5-10.1); MAGNESIUM 2.6 mg/dL (1.8-2.4)
[2023-11-11 08:35] LABS: BILIRUBIN,TOTAL 0.4 mg/dL (0.2-1); CREATININE 0.9 mg/dL (0.55-1.3); PHOSPHOROUS 5.2 mg/dL (2.5-4.9); TOT PROT 7.2 g/dl (6.4-8.2)
[2023-11-11] MEDS ORDERED: KETOROLAC TROMETHAMINE 15 MG/ML VIAL IVPUSH PRN (15:58)
[2023-11-11] MEDS ORDERED: MAGNESIUM HYDROX 2400MG/30ML ORAL SUSPENSION 30 ML CUP PO PRN (19:02)
[2023-11-11] MEDS: traMADol HCL 50 MG TABLET PO PRN (19:40)
[2023-11-11] MEDS: KETOROLAC TROMETHAMINE 15 MG/ML VIAL IVPUSH ONE (21:44)
[2023-11-11] MEDS: SIMETHICONE 80 MG TAB.CHEW (FP) PO SCH (21:47)
[2023-11-11] MEDS: LACTOBACILLUS ACIDOPHILUS 1 TABLET PO SCH (21:47)
[2023-11-11] MEDS: MELATONIN 5 MG TABLETS PO SCH (21:47)
[2023-11-11] MEDS: QUEtiapine FUMARATE 25 MG TABLET PO ONE (21:47)
[2023-11-11] MEDS: FAMOTIDINE 20 MG TABLET PO SCH (21:47)
[2023-11-11] MEDS: BACLOFEN 10 MG TABLET (FP) PO SCH (21:47)
[2023-11-12 08:50] VITALS: BMI 31.6
[2023-11-12 09:18] LABS: HEMATOCRIT 32.4 % (32.4-45.2); HEMOGLOBIN 10.1 GM/dL (10.7-15.3); MCH 25.3 pg (25.7-33.7); MCHC 31.1 g/dl (32.0-36.0); MEAN CELL VOLUME 81.4 fl (80-96); MEAN PLT VOLUME 9.2 fl (7.5-11.1); PLATELET COUNT 395 10^3/uL (134-434); RBC 3.98 M/mm3 (3.60-5.2); RDW 20.8 % (11.6-15.6); WHITE BLOOD COUNT 5.8 K/mm3 (4.0-10.0)
[2023-11-12 09:28] LABS: POTASSIUM 3.8 mmol/L (3.5-5.1)
[2023-11-12 09:33] LABS: CALCIUM 9.4 mg/dL (8.5-10.1)
[2023-11-12 09:34] LABS: BLOOD UREA NITROGEN 17.8 mg/dL (7-18)
[2023-11-12 09:37] LABS: CREATININE 0.7 mg/dL (0.55-1.3)
[2023-11-12 09:38] LABS: BILIRUBIN,TOTAL 0.4 mg/dL (0.2-1); TOT PROT 7.6 g/dl (6.4-8.2)
[2023-11-12] MEDS: DULoxetine HCL 30 MG CAPSULE.DR PO SCH (10:21)
[2023-11-12] MEDS: ASCORBIC ACID 500 MG TABLET (FP) PO SCH (10:21)
[2023-11-12] MEDS: ENOXAPARIN NA (PORCINE) 40 MG/0.4 ML DISP.SYRIN SQ SCH (10:23)
[2023-11-12] MEDS: POLYETHYLENE GLYCOL (HEALTHYLAX) 3350 17 GM PACKET GT SCH (10:23)
[2023-11-12] MEDS: AMINO ACIDS/PROTEIN HYDROLYS 30 ML LIQUID.PKT PO SCH (10:23)
[2023-11-13 09:08] LABS: HEMATOCRIT 32.1 % (32.4-45.2); MCH 24.9 pg (25.7-33.7); MCHC 31.1 g/dl (32.0-36.0); MEAN PLT VOLUME 8.8 fl (7.5-11.1); PLATELET COUNT 421 10^3/uL (134-434); RBC 4.01 M/mm3 (3.60-5.2); RDW 20.8 % (11.6-15.6); WHITE BLOOD COUNT 4.9 K/mm3 (4.0-10.0)
[2023-11-13 09:13] LABS: CALCIUM 9.2 mg/dL (8.5-10.1)
[2023-11-13 09:14] LABS: MAGNESIUM 2.6 mg/dL (1.8-2.4)
[2023-11-13 09:16] LABS: CREATININE 0.7 mg/dL (0.55-1.3); PHOSPHOROUS 3.7 mg/dL (2.5-4.9)
[2023-11-13 09:17] LABS: BILIRUBIN,TOTAL 0.5 mg/dL (0.2-1); TOT PROT 7.2 g/dl (6.4-8.2)
[2023-11-13] MEDS: MEROPENEM 1 GM in DEXTROSE 5%-WATER 100 ML IVPB SCH (14:14)
[2023-11-14 06:19] VITALS: RESP 20
[2023-11-14] MEDS: ACETAMINOPHEN 1000 MG/100 ML BAG IVPB PRN (06:26)
[2023-11-14 09:03] LABS: HEMATOCRIT 31.4 % (32.4-45.2); HEMOGLOBIN 9.7 GM/dL (10.7-15.3); MCH 24.8 pg (25.7-33.7); MCHC 30.8 g/dl (32.0-36.0); MEAN CELL VOLUME 80.4 fl (80-96); MEAN PLT VOLUME 8.8 fl (7.5-11.1); PLATELET COUNT 412 10^3/uL (134-434); RDW 20.3 % (11.6-15.6); WHITE BLOOD COUNT 5.8 K/mm3 (4.0-10.0)
[2023-11-14 09:15] LABS: POTASSIUM 4.3 mmol/L (3.5-5.1)
[2023-11-14 09:18] LABS: CALCIUM 9.3 mg/dL (8.5-10.1)
[2023-11-14 09:19] LABS: ALBUMIN 2.8 g/dl (3.4-5.0); BLOOD UREA NITROGEN 9.2 mg/dL (7-18); MAGNESIUM 2.6 mg/dL (1.8-2.4)
[2023-11-14 09:23] LABS: BILIRUBIN,TOTAL 0.4 mg/dL (0.2-1); PHOSPHOROUS 3.3 mg/dL (2.5-4.9)
[2023-11-14 09:26] LABS: CREATININE 0.5 mg/dL (0.55-1.3)
[2023-11-14] MEDS: BACITRACIN ZINC 15 GM TUBE TOPICAL OINTMENT TP SCH (11:21)
[2023-11-14 19:33] VITALS: BP 113/75; PULSE 70; TEMP 98.6
[2023-11-14] MEDS ORDERED: DOXYCYCLINE INJECTION 100 MG in DEXTROSE 5%-WATER 100 ML IVPB SCH (22:00)
== END 2023-11-14 20:01 | DRG 919 ==
LOC: JER 21:01 → JERBED 11-10 04:27 → J6S 11-10 07:11 → J8W 11-13 20:27
PROVIDERS: ADMIT Internal Medicine
DX: T85.528A Displacement of other gastrointestinal prosthetic devices, implants and grafts, initial encounter (principal); R53.2 Functional quadriplegia; J96.11 Chronic respiratory failure with hypoxia; L03.311 Cellulitis of abdominal wall; J96.12 Chronic respiratory failure with hypercapnia; Z43.1 Encounter for attention to gastrostomy; L02.211 Cutaneous abscess of abdominal wall; G35 Multiple sclerosis; M79.7 Fibromyalgia; Y83.9 Surgical procedure, unspecified as the cause of abnormal reaction of the patient, or of later complication, without mention of misadventure at the time of the procedure
CPT/HCPCS: 36415; 74018-TC-FY; 74176-TC; 74177-TC; 76705-TC; 80053; 81003; 82962; 83735; 84100; 85025; 85027; 85610; 85651; 85730; 86140; 86850; 86900; 86901; 87040; 87070; 87077; 87186; 87205; 93005; 93010; 94640; 99285-25; J0131; J0475

== ENCOUNTER 2023-11-30 20:10 | Emergency (ER) | payer OTHER ==
[2023-11-30 20:21] VITALS: BMI 30.3
[2023-11-30 21:07] LABS: BASO % 0.7 % (0-2.0); EOS % 3.8 % (0-4.5); HEMOGLOBIN 10.6 GM/dL (10.7-15.3); LYMPH % 24.4 % (8-40); MCH 24.9 pg (25.7-33.7); MEAN CELL VOLUME 80.3 fl (80-96); MEAN PLT VOLUME 9.4 fl (7.5-11.1); MONO % 9.7 % (3.8-10.2); NEUT % 61.4 % (42.8-82.8); PLATELET COUNT 297 10^3/uL (134-434); RBC 4.24 M/mm3 (3.60-5.2); RDW 20.6 % (11.6-15.6); WHITE BLOOD COUNT 7.9 K/mm3 (4.0-10.0)
[2023-11-30 21:19] LABS: INR 0.95 (0.83-1.09); PROTHROMBIN TIME (PATIENT) 10.7 SEC (9.7-13.0)
[2023-11-30 21:35] LABS: ANISOCYTOSIS 2+; MACROCYTOSIS 0; TEAR DROP CELLS 1+
[2023-11-30 21:44] LABS: ALBUMIN 3.1 g/dl (3.4-5.0); BLOOD UREA NITROGEN 26.2 mg/dL (7-18); CALCIUM 9.8 mg/dL (8.5-10.1)
[2023-11-30 21:48] LABS: CREATININE 0.6 mg/dL (0.55-1.3)
[2023-11-30 21:49] LABS: BILIRUBIN,TOTAL 0.4 mg/dL (0.2-1)
[2023-11-30 21:51] LABS: TOT PROT 7.7 g/dl (6.4-8.2)
[2023-11-30] MEDS ORDERED: ACETAMINOPHEN INJECTION 100 ML ONE (22:20)
[2023-11-30] MEDS ORDERED: ONDANSETRON 4 MG/2 ML VIAL ONE (22:20)
[2023-11-30] MEDS: ACETAMINOPHEN 1000 MG/100 ML BAG IVPB ONE (22:27)
[2023-11-30] MEDS: ALBUTEROL SO4 2.5/IPRATROPIUM 0.5 INH SOL 3 ML VIAL.NEB. NEB ONE (22:28)
[2023-11-30] MEDS: ONDANSETRON 4 MG/2 ML VIAL IVPUSH ONE (22:28)
[2023-11-30] MEDS ORDERED: ALBUTEROL SO4 2.5/IPRATROPIUM 0.5 INH SOL 3 ML VIAL.NEB. NEB ONE (22:31)
[2023-11-30 23:46] VITALS: TEMP 98.9
[2023-12-01 00:12] LABS: EPI CELLS 12 /uL (0-25.1); HYALINE CASTS 3 /uL (0-3.1); URINE APPEARANCE TURBID; URINE BACTERIA >9,000 /uL (0-1359); URINE BILIRUBIN 1+ (NEGATIVE); URINE COLOR DK YELLOW; URINE GLUCOSE (UA) NEGATIVE (NEGATIVE); URINE KETONE NEGATIVE (NEGATIVE); URINE LEUK ESTERASE 3+ (NEGATIVE); URINE NITRITE POSITIVE (NEGATIVE); URINE PROTEIN 2+ (NEGATIVE); URINE WBC 440 /uL (0-25.8)
[2023-12-01] MEDS ORDERED: VANCOMYCIN/WATER 1250 MG 1,250 MG/250 ML BAG IVPB ONE (00:13)
[2023-12-01] MEDS: VANCOMYCIN/WATER 1250 MG 1,250 MG/250 ML BAG IVPB ONE (00:20)
[2023-12-01] MEDS: SULFAMETHOXAZOLE 80 MG/TRIMETHOPRIM 16 MG/ML VIAL IVPB ONE (00:33)
[2023-12-01] MEDS ORDERED: MEROPENEM 1 GM VIAL (RESTRICTED TO ID) IVPB ONE (00:33)
[2023-12-01] MEDS: MEROPENEM 1 GM in DEXTROSE 5%-WATER 100 ML IVPB ONE (00:38)
[2023-12-01 01:32] VITALS: BP 128/66; PULSE 70; RESP 14
== END 2023-12-01 01:48 ==
LOC: JER 20:10
PROC: 3E033NZ Introduction of Analgesics, Hypnotics, Sedatives into Peripheral Vein, Percutaneous Approach (ICD-10-PCS; 2023-11-30)
PROC: 3E033GC Introduction of Other Therapeutic Substance into Peripheral Vein, Percutaneous Approach (ICD-10-PCS; 2023-11-30)
PROC: 3E0F7GC Introduction of Other Therapeutic Substance into Respiratory Tract, Via Natural or Artificial Opening (ICD-10-PCS; 2023-11-30)
PROC: 3E03329 Introduction of Other Anti-infective into Peripheral Vein, Percutaneous Approach (ICD-10-PCS; principal; 2023-12-01)
DX: N39.0 Urinary tract infection, site not specified (principal); Z93.1 Gastrostomy status; Z20.822 Contact with and (suspected) exposure to COVID-19
CPT/HCPCS: 0241U-QW; 36415; 71046-TC-FY; 74177-TC; 80053; 81003; 83690; 84484; 85025; 85610; 85730; 86140; 87086; 93005; 93010; 94640; 96365; 96375; 99285-25; J0131; Q9967

== ENCOUNTER 2023-12-24 11:18 | Inpatient (IN) | payer OTHER ==
[2023-12-24 13:29] LABS: BASO % 1.1 % (0-2.0); EOS % 4.8 % (0-4.5); HEMATOCRIT 37.7 % (32.4-45.2); HEMOGLOBIN 11.5 GM/dL (10.7-15.3); LYMPH % 26.4 % (8-40); MCH 25.2 pg (25.7-33.7); MCHC 30.4 g/dl (32.0-36.0); MEAN CELL VOLUME 82.7 fl (80-96); MEAN PLT VOLUME 9.2 fl (7.5-11.1); MONO % 10.7 % (3.8-10.2); PLATELET COUNT 292 10^3/uL (134-434); RBC 4.56 M/mm3 (3.60-5.2); RDW 18.9 % (11.6-15.6)
[2023-12-24 13:35] LABS: INR 0.93 (0.83-1.09); PROTHROMBIN TIME (PATIENT) 10.5 SEC (9.7-13.0)
[2023-12-24 13:38] LABS: ACTIVATED PTT 28.4 SECONDS (25.2-36.5)
[2023-12-24 14:00] LABS: CALCIUM 9.8 mg/dL (8.5-10.1)
[2023-12-24 14:01] LABS: ALBUMIN 3.2 g/dl (3.4-5.0); BLOOD UREA NITROGEN 32.4 mg/dL (7-18)
[2023-12-24 14:03] LABS: CREATININE 0.6 mg/dL (0.55-1.3)
[2023-12-24 14:05] LABS: BILIRUBIN,TOTAL 0.3 mg/dL (0.2-1); TOT PROT 7.9 g/dl (6.4-8.2)
[2023-12-24] MEDS ORDERED: ACETAMINOPHEN INJECTION 100 ML ONE (14:27)
[2023-12-24] MEDS ORDERED: MORPHINE SULFATE 2 MG/ML SYRINGE ONE ×2 (14:27→18:07)
[2023-12-24] MEDS: ACETAMINOPHEN 1000 MG/100 ML BAG IVPB ONE (14:40)
[2023-12-24] MEDS: morphine CARPU-JECT 2 MG/1 ML DISP.SYRIN IVPUSH ONE ×2 (14:41→18:09)
[2023-12-24] MEDS ORDERED: VANCOMYCIN 1 GRAM (PRE-DOCKED) 1,000 MG/250 ML BAG IVPB ONE (16:18)
[2023-12-24] MEDS: VANCOMYCIN 1,000 MG in DEXTROSE 5%-WATER - 250 ML IVPB ONE (16:25)
[2023-12-24] MEDS ORDERED: VANCOMYCIN 1,000 MG in DEXTROSE 5%-WATER - 250 ML IVPB SCH (20:00)
[2023-12-24] MEDS: FAMOTIDINE 20 MG TABLET PEG SCH (23:33)
[2023-12-24] MEDS: BACLOFEN 10 MG TABLET (FP) GT SCH (23:33)
[2023-12-24] MEDS: MELATONIN 5 MG TABLETS GT SCH (23:33)
[2023-12-24] MEDS: LACTOBACILLUS ACIDOPHILUS 1 TABLET GT SCH (23:33)
[2023-12-24] MEDS: GABAPENTIN 250 MG/5 ML ORAL SOLUTION, 470 ML BOTTLE GT SCH (23:58)
[2023-12-25] MEDS: PIPERACILLIN/TAZOB 3.375 GM 3.375 GM in DEXTROSE 5%-WATER - 50 ML IVPB SCH ×2 (02:07→16:33)
[2023-12-25] MEDS: ALBUTEROL SO4 2.5/IPRATROPIUM 0.5 INH SOL 3 ML VIAL.NEB. NEB SCH (08:47)
[2023-12-25] MEDS: VANCOMYCIN/WATER FOR INJ (PEG) 1,000 MG/200 ML BAG IVPB SCH (09:12)
[2023-12-25 09:30] LABS: HEMATOCRIT 37.5 % (32.4-45.2); HEMOGLOBIN 11.6 GM/dL (10.7-15.3); MCH 25.3 pg (25.7-33.7); MCHC 30.9 g/dl (32.0-36.0); MEAN CELL VOLUME 81.8 fl (80-96); MEAN PLT VOLUME 9.8 fl (7.5-11.1); PLATELET COUNT 293 10^3/uL (134-434); RBC 4.58 M/mm3 (3.60-5.2); RDW 19.3 % (11.6-15.6)
[2023-12-25 09:51] LABS: POTASSIUM 4.6 mmol/L (3.5-5.1)
[2023-12-25 09:57] LABS: ALBUMIN 3.4 g/dl (3.4-5.0); BLOOD UREA NITROGEN 27.4 mg/dL (7-18)
[2023-12-25 09:59] LABS: CALCIUM 9.9 mg/dL (8.5-10.1)
[2023-12-25 10:02] LABS: CREATININE 0.7 mg/dL (0.55-1.3)
[2023-12-25 10:05] LABS: TOT PROT 7.8 g/dl (6.4-8.2)
[2023-12-25 10:06] LABS: BILIRUBIN,TOTAL 0.4 mg/dL (0.2-1)
[2023-12-25] MEDS: DULoxetine HCL 30 MG CAPSULE.DR PO SCH (10:12)
[2023-12-25] MEDS: ZINC OXIDE 20% TOPICAL OINTMENT 30 GM TUBE TP SCH (12:59)
[2023-12-25 13:31] VITALS: BMI 30.6
[2023-12-25] MEDS: CEFTRIAXONE 1 GM in DEXTROSE 5%-WATER - 50 ML IVPB SCH (13:32)
[2023-12-25] MEDS: VANCOMYCIN 1,000 MG in DEXTROSE 5%-WATER - 250 ML IVPB SCH (16:33)
[2023-12-26 10:30] LABS: BASO % 1.1 % (0-2.0); EOS % 3.4 % (0-4.5); HEMATOCRIT 34.3 % (32.4-45.2); HEMOGLOBIN 10.4 GM/dL (10.7-15.3); MCH 24.9 pg (25.7-33.7); MCHC 30.2 g/dl (32.0-36.0); MEAN CELL VOLUME 82.4 fl (80-96); MEAN PLT VOLUME 9.7 fl (7.5-11.1); MONO % 9.5 % (3.8-10.2); PLATELET COUNT 275 10^3/uL (134-434); RBC 4.16 M/mm3 (3.60-5.2); RDW 19.2 % (11.6-15.6); WHITE BLOOD COUNT 6.5 K/mm3 (4.0-10.0)
[2023-12-26 12:36] LABS: POTASSIUM 4.3 mmol/L (3.5-5.1)
[2023-12-26 12:41] LABS: ALBUMIN 3.1 g/dl (3.4-5.0); BLOOD UREA NITROGEN 19.6 mg/dL (7-18); CALCIUM 9.2 mg/dL (8.5-10.1)
[2023-12-26 12:42] LABS: MAGNESIUM 2.6 mg/dL (1.8-2.4)
[2023-12-26 12:44] LABS: CREATININE 0.6 mg/dL (0.55-1.3); PHOSPHOROUS 4.5 mg/dL (2.5-4.9)
[2023-12-26 12:45] LABS: BILIRUBIN,TOTAL 0.7 mg/dL (0.2-1); TOT PROT 7.6 g/dl (6.4-8.2)
[2023-12-26] MEDS: ACETAMINOPHEN 325 MG TABLET (FP) PO PRN (14:24)
[2023-12-26] MEDS: ONDANSETRON 4 MG/2 ML VIAL IVPUSH ONE (18:29)
[2023-12-26] MEDS: ACETAMINOPHEN 325 MG TABLET (FP) PO ONE (18:49)
[2023-12-27] MEDS: ONDANSETRON 4 MG/2 ML VIAL IVPUSH ONE (06:29)
[2023-12-27] MEDS: LACTULOSE 20 GM/30 ML UDC (FOR ORAL USE ONLY) PO ONE (08:59)
[2023-12-27] MEDS: FAMOTIDINE 20 MG TABLET PO SCH (09:00)
[2023-12-27 10:12] LABS: HEMATOCRIT 33.5 % (32.4-45.2); HEMOGLOBIN 10.1 GM/dL (10.7-15.3); MCHC 30.2 g/dl (32.0-36.0); MEAN CELL VOLUME 82.7 fl (80-96); MEAN PLT VOLUME 9.6 fl (7.5-11.1); PLATELET COUNT 237 10^3/uL (134-434); RBC 4.05 M/mm3 (3.60-5.2); RDW 18.9 % (11.6-15.6); WHITE BLOOD COUNT 6.2 K/mm3 (4.0-10.0)
[2023-12-27] MEDS: traMADol HCL 50 MG TABLET PO PRN (10:44)
[2023-12-27 12:07] LABS: BLOOD UREA NITROGEN 20.6 mg/dL (7-18); CALCIUM 9.2 mg/dL (8.5-10.1); CREATININE 0.6 mg/dL (0.55-1.3); MAGNESIUM 2.6 mg/dL (1.8-2.4); PHOSPHOROUS 4.2 mg/dL (2.5-4.9); POTASSIUM 4.5 mmol/L (3.5-5.1)
[2023-12-27] MEDS: BACLOFEN 10 MG TABLET (FP) PO SCH (13:18)
[2023-12-27] MEDS: GABAPENTIN 100 MG CAPSULE PO SCH ×2 (13:18→21:35)
[2023-12-27] MEDS: GABAPENTIN 100 MG CAPSULE PO ONE (14:28)
[2023-12-27] MEDS: MELATONIN 5 MG TABLETS PO SCH (19:41)
[2023-12-27] MEDS: LACTOBACILLUS ACIDOPHILUS 1 TABLET PO SCH (21:35)
[2023-12-28 08:58] LABS: BASO % 1.2 % (0-2.0); EOS % 4.9 % (0-4.5); HEMATOCRIT 35.1 % (32.4-45.2); HEMOGLOBIN 10.5 GM/dL (10.7-15.3); LYMPH % 18.2 % (8-40); MEAN CELL VOLUME 83.2 fl (80-96); MEAN PLT VOLUME 9.6 fl (7.5-11.1); MONO % 11.6 % (3.8-10.2); NEUT % 64.1 % (42.8-82.8); PLATELET COUNT 295 10^3/uL (134-434); RBC 4.22 M/mm3 (3.60-5.2); RDW 19.1 % (11.6-15.6); WHITE BLOOD COUNT 6.6 K/mm3 (4.0-10.0)
[2023-12-28] MEDS: AMINO ACIDS/PROTEIN HYDROLYS 30 ML LIQUID.PKT PO SCH (08:58)
[2023-12-28 08:59] LABS: INR 0.97 (0.83-1.09)
[2023-12-28] MEDS: DULoxetine HCL 30 MG CAPSULE.DR PO SCH (09:01)
[2023-12-28 09:21] LABS: POTASSIUM 4.8 mmol/L (3.5-5.1)
[2023-12-28 09:29] LABS: BLOOD UREA NITROGEN 19.8 mg/dL (7-18); CALCIUM 9.5 mg/dL (8.5-10.1)
[2023-12-28 09:32] LABS: CREATININE 0.5 mg/dL (0.55-1.3)
[2023-12-28] MEDS ORDERED: LACTULOSE 20 GM/30 ML UDC (FOR ORAL USE ONLY) PO PRN (10:00)
[2023-12-28] MEDS: NYSTATIN 100,000 UNIT/GM TOPICAL CREAM 15 GM TUBE TP SCH (21:34)
[2023-12-29 10:14] LABS: BASO % 0.4 % (0-2.0); EOS % 3.5 % (0-4.5); HEMATOCRIT 34.1 % (32.4-45.2); HEMOGLOBIN 10.4 GM/dL (10.7-15.3); LYMPH % 18.2 % (8-40); MCH 25.1 pg (25.7-33.7); MCHC 30.5 g/dl (32.0-36.0); MEAN CELL VOLUME 82.4 fl (80-96); MEAN PLT VOLUME 9.7 fl (7.5-11.1); MONO % 6.6 % (3.8-10.2); NEUT % 71.3 % (42.8-82.8); PLATELET COUNT 294 10^3/uL (134-434); RBC 4.14 M/mm3 (3.60-5.2); RDW 18.9 % (11.6-15.6); WHITE BLOOD COUNT 8.6 K/mm3 (4.0-10.0)
[2023-12-29] MEDS ORDERED: cefTRIAXone SODIUM 1 GM VIAL ONE (10:19)
[2023-12-29 10:27] LABS: POTASSIUM 4.2 mmol/L (3.5-5.1)
[2023-12-29 10:31] LABS: CALCIUM 9.5 mg/dL (8.5-10.1)
[2023-12-29 10:32] LABS: ALBUMIN 3.2 g/dl (3.4-5.0); BLOOD UREA NITROGEN 21.6 mg/dL (7-18); MAGNESIUM 2.6 mg/dL (1.8-2.4)
[2023-12-29 10:35] LABS: CREATININE 0.6 mg/dL (0.55-1.3); PHOSPHOROUS 3.8 mg/dL (2.5-4.9)
[2023-12-29 10:36] LABS: BILIRUBIN,TOTAL 0.5 mg/dL (0.2-1)
[2023-12-29 10:37] LABS: TOT PROT 7.6 g/dl (6.4-8.2)
[2023-12-29 22:09] VITALS: BP 109/79; PULSE 83; RESP 18; TEMP 99
== END 2023-12-29 09:45 | DRG 393 ==
LOC: JER 11:18 → JERBED 16:21 → J6W 23:11 → OBSVTOIN 12-27 08:21
PROVIDERS: ADMIT Internal Medicine
DX: K94.22 Gastrostomy infection (principal); R53.2 Functional quadriplegia; L03.319 Cellulitis of trunk, unspecified; G35 Multiple sclerosis; M79.7 Fibromyalgia; F03.90 Unspecified dementia, unspecified severity, without behavioral disturbance, psychotic disturbance, mood disturbance, and anxiety; Y83.9 Surgical procedure, unspecified as the cause of abnormal reaction of the patient, or of later complication, without mention of misadventure at the time of the procedure
CPT/HCPCS: 36415; 74177-TC; 80048; 80053; 82962; 83605; 83690; 83735; 84100; 85025; 85027; 85610; 85730; 86850; 86900; 86901; 87040; 87077; 87081; 93005; 93010; 94640; 97116-GP; 97161-GP; 99285-25; G0378; J0131; J0475; Q9967

== ENCOUNTER 2024-01-04 02:40 | Inpatient (IN) | payer OTHER ==
[2024-01-04] MEDS ORDERED: ACETAMINOPHEN INJECTION 100 ML ONE (03:45)
[2024-01-04 04:15] LABS: BASO % 0.7 % (0-2.0); EOS % 5.4 % (0-4.5); HEMATOCRIT 37.4 % (32.4-45.2); HEMOGLOBIN 11.9 GM/dL (10.7-15.3); LYMPH % 28.9 % (8-40); MCH 25.4 pg (25.7-33.7); MCHC 31.7 g/dl (32.0-36.0); MEAN CELL VOLUME 80.2 fl (80-96); MEAN PLT VOLUME 8.9 fl (7.5-11.1); PLATELET COUNT 398 10^3/uL (134-434); RBC 4.67 M/mm3 (3.60-5.2); RDW 18.7 % (11.6-15.6); WHITE BLOOD COUNT 6.2 K/mm3 (4.0-10.0)
[2024-01-04] MEDS: ACETAMINOPHEN 1000 MG/100 ML BAG IVPB ONE (04:15)
[2024-01-04 05:37] LABS: POTASSIUM 4.6 mmol/L (3.5-5.1)
[2024-01-04 05:38] LABS: CALCIUM 9.6 mg/dL (8.5-10.1)
[2024-01-04 05:39] LABS: ALBUMIN 3.4 g/dl (3.4-5.0); BLOOD UREA NITROGEN 26.5 mg/dL (7-18)
[2024-01-04 05:42] LABS: CREATININE 0.6 mg/dL (0.55-1.3)
[2024-01-04 05:44] LABS: TOT PROT 7.8 g/dl (6.4-8.2)
[2024-01-04 05:48] LABS: BILIRUBIN,TOTAL 0.3 mg/dL (0.2-1)
[2024-01-04] MEDS ORDERED: QUEtiapine FUMARATE 100 MG TABLET (FP) ONE (06:41)
[2024-01-04] MEDS: VANCOMYCIN HCL 1,500 MG in DEXTROSE 5%-WATER - 500 ML IVPB ONE (06:53)
[2024-01-04] MEDS: QUEtiapine FUMARATE 50 MG TABLET PO ONE (06:53)
[2024-01-04] MEDS ORDERED: ENOXAPARIN NA (PORCINE) 40 MG/0.4 ML DISP.SYRIN SQ ONE (08:42)
[2024-01-04] MEDS: ENOXAPARIN NA (PORCINE) 40 MG/0.4 ML DISP.SYRIN SQ SCH (09:16)
[2024-01-04] MEDS ORDERED: VANCOMYCIN/WATER FOR INJ (PEG) 1,000 MG/200 ML BAG IVPB SCH ×2 (10:00→19:00)
[2024-01-04] MEDS ORDERED: BACLOFEN 10 MG TABLET (FP) ONE ×2 (15:52→20:51)
[2024-01-04] MEDS: BACLOFEN 10 MG TABLET (FP) GT SCH (16:56)
[2024-01-04] MEDS: GABAPENTIN 250 MG/5 ML ORAL SOLUTION, 470 ML BOTTLE GT SCH (16:56)
[2024-01-04] MEDS ORDERED: MORPHINE SULFATE 2 MG/ML SYRINGE ONE ×2 (18:13→22:32)
[2024-01-04] MEDS ORDERED: PIPERACILLIN/TAZOB 3.375 GM 3.375 GM/50 ML BAG IVPB ONE (18:13)
[2024-01-04] MEDS: MORPHINE SULFATE 2 MG/ML SYRINGE IVPUSH ONE (18:22)
[2024-01-04] MEDS: PIPERACILLIN/TAZOB 3.375 GM 3.375 GM in DEXTROSE 5%-WATER - 50 ML IVPB SCH (18:22)
[2024-01-04] MEDS ORDERED: ACETAMINOPHEN 325 MG TABLET (FP) ONE (19:28)
[2024-01-04] MEDS: ACETAMINOPHEN 325 MG TABLET (FP) PO PRN (19:38)
[2024-01-04] MEDS ORDERED: GABAPENTIN 100 MG CAPSULE ONE ×2 (20:52)
[2024-01-04] MEDS: MORPHINE SULFATE 2 MG/ML SYRINGE IVPUSH PRN (22:36)
[2024-01-05] MEDS ORDERED: PIPERACILLIN/TAZOB 3.375 GM 3.375 GM/50 ML BAG IVPB ONE ×2 (02:40→10:26)
[2024-01-05] MEDS ORDERED: GABAPENTIN 100 MG CAPSULE ONE (06:10)
[2024-01-05] MEDS ORDERED: BACLOFEN 10 MG TABLET (FP) ONE (06:10)
[2024-01-05 07:42] LABS: HEMATOCRIT 39.4 % (32.4-45.2); HEMOGLOBIN 12.3 GM/dL (10.7-15.3); MCH 25.3 pg (25.7-33.7); MCHC 31.1 g/dl (32.0-36.0); MEAN CELL VOLUME 81.5 fl (80-96); PLATELET COUNT 390 10^3/uL (134-434); RBC 4.84 M/mm3 (3.60-5.2); RDW 18.9 % (11.6-15.6); WHITE BLOOD COUNT 7.7 K/mm3 (4.0-10.0)
[2024-01-05 07:43] LABS: EOS % 4.4 % (0-4.5); LYMPH % 18.3 % (8-40); MEAN PLT VOLUME 9.5 fl (7.5-11.1); MONO % 9.1 % (3.8-10.2); NEUT % 67.2 % (42.8-82.8)
[2024-01-05 08:02] LABS: POTASSIUM 4.4 mmol/L (3.5-5.1)
[2024-01-05 08:29] LABS: ALBUMIN 3.7 g/dl (3.4-5.0); BLOOD UREA NITROGEN 23.7 mg/dL (7-18)
[2024-01-05 08:31] LABS: BILIRUBIN,TOTAL 0.5 mg/dL (0.2-1); CREATININE 0.8 mg/dL (0.55-1.3); MAGNESIUM 2.7 mg/dL (1.8-2.4); TOT PROT 8.6 g/dl (6.4-8.2)
[2024-01-05 08:33] LABS: CALCIUM 9.9 mg/dL (8.5-10.1); PHOSPHOROUS 5.1 mg/dL (2.5-4.9)
[2024-01-05] MEDS ORDERED: FAMOTIDINE 20 MG/2.5 ML ORAL LIQUID NGT SCH (10:00)
[2024-01-05] MEDS ORDERED: MORPHINE SULFATE 2 MG/ML SYRINGE ONE (10:25)
[2024-01-05] MEDS: DULoxetine HCL 30 MG CAPSULE.DR PO SCH (10:45)
[2024-01-05] MEDS: FAMOTIDINE 20 MG/2.5 ML ORAL LIQUID PO SCH (10:45)
[2024-01-05] MEDS: ZINC OXIDE 20% TOPICAL OINTMENT 30 GM TUBE TP SCH (11:00)
[2024-01-05] MEDS ORDERED: ALBUTEROL SO4 2.5/IPRATROPIUM 0.5 INH SOL 3 ML VIAL.NEB. NEB ONE (11:57)
[2024-01-05] MEDS ORDERED: ENOXAPARIN NA (PORCINE) 40 MG/0.4 ML DISP.SYRIN SQ ONE (11:57)
[2024-01-05] MEDS: ENOXAPARIN NA (PORCINE) 40 MG/0.4 ML DISP.SYRIN SQ SCH (12:04)
[2024-01-05] MEDS: ALBUTEROL SO4 2.5/IPRATROPIUM 0.5 INH SOL 3 ML VIAL.NEB. NEB SCH (12:05)
[2024-01-05] MEDS ORDERED: GABAPENTIN 100 MG CAPSULE PO SCH (14:00)
[2024-01-05 16:51] VITALS: RESP 20
[2024-01-05] MEDS: LACTOBACILLUS ACIDOPHILUS 1 TABLET GT SCH (21:30)
[2024-01-05] MEDS: MELATONIN 5 MG TABLETS PO SCH (21:30)
[2024-01-05] MEDS: ZINC OXIDE/PETROLATUM,WHITE 1 APPLIC OINT...G. TP SCH (21:31)
[2024-01-05] MEDS ORDERED: MELATONIN 5 MG TABLETS GT SCH (22:00)
[2024-01-06] MEDS: GABAPENTIN 100 MG CAPSULE PO SCH (06:15)
[2024-01-06 08:26] LABS: BASO % 0.6 % (0-2.0); EOS % 2.7 % (0-4.5); HEMATOCRIT 34.3 % (32.4-45.2); HEMOGLOBIN 10.7 GM/dL (10.7-15.3); LYMPH % 18.7 % (8-40); MCHC 31.1 g/dl (32.0-36.0); MEAN CELL VOLUME 80.2 fl (80-96); MEAN PLT VOLUME 9.1 fl (7.5-11.1); MONO % 10.2 % (3.8-10.2); NEUT % 67.8 % (42.8-82.8); PLATELET COUNT 355 10^3/uL (134-434); RBC 4.27 M/mm3 (3.60-5.2); RDW 18.4 % (11.6-15.6); WHITE BLOOD COUNT 6.8 K/mm3 (4.0-10.0)
[2024-01-06 08:40] LABS: POTASSIUM 4.2 mmol/L (3.5-5.1)
[2024-01-06 08:51] LABS: ALBUMIN 3.1 g/dl (3.4-5.0); CALCIUM 9.5 mg/dL (8.5-10.1)
[2024-01-06 08:55] LABS: BLOOD UREA NITROGEN 19.6 mg/dL (7-18); MAGNESIUM 2.3 mg/dL (1.8-2.4)
[2024-01-06 08:56] LABS: TOT PROT 7.5 g/dl (6.4-8.2)
[2024-01-06 08:58] LABS: CREATININE 0.7 mg/dL (0.55-1.3); PHOSPHOROUS 3.4 mg/dL (2.5-4.9)
[2024-01-06 09:01] LABS: BILIRUBIN,TOTAL 0.4 mg/dL (0.2-1)
[2024-01-06] MEDS: VANCOMYCIN 1,000 MG in DEXTROSE 5%-WATER - 250 ML IVPB SCH (09:29)
[2024-01-06] MEDS: PIPERACILLIN/TAZOB 3.375 GM 3.375 GM in DEXTROSE 5%-WATER - 50 ML IVPB SCH ×2 (09:29→11:08)
[2024-01-06 11:53] VITALS: BMI 31.6
[2024-01-06] MEDS: PIPERACILLIN/TAZOB 3.375 GM 50 ML IVPB SCH (19:30)
[2024-01-06] MEDS: KETOCONAZOLE 2% CREAM - 60GM TUBE TP SCH (19:30)
[2024-01-06] MEDS: LACTOBACILLUS ACIDOPHILUS 1 TABLET PO SCH (21:35)
[2024-01-06] MEDS: BACLOFEN 10 MG TABLET (FP) PO SCH (21:35)
[2024-01-07 06:37] VITALS: TEMP 98.1
[2024-01-07 09:03] LABS: BASO % 0.8 % (0-2.0); EOS % 4.6 % (0-4.5); HEMATOCRIT 35.4 % (32.4-45.2); HEMOGLOBIN 11.1 GM/dL (10.7-15.3); LYMPH % 21.2 % (8-40); MCH 25.1 pg (25.7-33.7); MCHC 31.4 g/dl (32.0-36.0); MEAN CELL VOLUME 80.1 fl (80-96); MEAN PLT VOLUME 9.1 fl (7.5-11.1); MONO % 8.3 % (3.8-10.2); NEUT % 65.1 % (42.8-82.8); PLATELET COUNT 318 10^3/uL (134-434); RBC 4.42 M/mm3 (3.60-5.2); RDW 18.5 % (11.6-15.6); WHITE BLOOD COUNT 5.7 K/mm3 (4.0-10.0)
[2024-01-07 09:19] LABS: POTASSIUM 4.5 mmol/L (3.5-5.1)
[2024-01-07 09:40] LABS: ALBUMIN 3.2 g/dl (3.4-5.0); CALCIUM 9.6 mg/dL (8.5-10.1); MAGNESIUM 2.6 mg/dL (1.8-2.4)
[2024-01-07 09:43] LABS: BILIRUBIN,TOTAL 0.4 mg/dL (0.2-1); BLOOD UREA NITROGEN 14.2 mg/dL (7-18); PHOSPHOROUS 4.5 mg/dL (2.5-4.9); TOT PROT 7.6 g/dl (6.4-8.2)
[2024-01-07 09:45] LABS: CREATININE 0.6 mg/dL (0.55-1.3)
[2024-01-07] MEDS: ACETAMINOPHEN 1000 MG/100 ML BAG IVPB ONE ×2 (11:19→11:21)
[2024-01-07 21:57] VITALS: BP 106/48; PULSE 86
== END 2024-01-07 22:50 | DRG 393 ==
LOC: JER 02:40 → JERBED 04:52 → J7W 01-05 14:35
PROVIDERS: ADMIT Internal Medicine; ATTEND Internal Medicine
PROC: 0D20XUZ Change Feeding Device in Upper Intestinal Tract, External Approach (ICD-10-PCS; principal; 2024-01-04)
DX: K94.22 Gastrostomy infection (principal); R53.2 Functional quadriplegia; L03.311 Cellulitis of abdominal wall; Y83.8 Other surgical procedures as the cause of abnormal reaction of the patient, or of later complication, without mention of misadventure at the time of the procedure; G35 Multiple sclerosis; M79.7 Fibromyalgia; F03.90 Unspecified dementia, unspecified severity, without behavioral disturbance, psychotic disturbance, mood disturbance, and anxiety
CPT/HCPCS: 36415; 49450; 74177-TC; 80053; 83735; 84100; 85025; 87070; 87077; 87081; 87205; 93005; 93010; 94640; 99285-25; J0131; J0475; Q9967

== ENCOUNTER 2024-02-14 08:25 | Inpatient (IN) | payer OTHER ==
[2024-02-14 08:52] VITALS: BMI 28.2
[2024-02-14 09:41] LABS: BASO % 0.8 % (0-2.0); EOS % 0.5 % (0-4.5); HEMATOCRIT 43.5 % (32.4-45.2); HEMOGLOBIN 13.6 GM/dL (10.7-15.3); LYMPH % 14.6 % (8-40); MCH 25.8 pg (25.7-33.7); MCHC 31.3 g/dl (32.0-36.0); MEAN CELL VOLUME 82.4 fl (80-96); MONO % 6.9 % (3.8-10.2); NEUT % 77.2 % (42.8-82.8); PLATELET COUNT 371 10^3/uL (134-434); RBC 5.28 M/mm3 (3.60-5.2); VENOUS BASE EXCESS 4.8 mmol/L (-2-2); VENOUS O2 SATURATION 70.8 % (70-80); VENOUS PCO2 50.7 mmHg (38-52); VENOUS PH 7.402 (7.310-7.410); WHITE BLOOD COUNT 10.3 K/mm3 (4.0-10.0)
[2024-02-14 09:43] LABS: INR 0.98 (0.83-1.09); PROTHROMBIN TIME (PATIENT) 11.3 SEC (9.7-13.0)
[2024-02-14 09:45] LABS: ACTIVATED PTT 33.3 SECONDS (25.2-36.5)
[2024-02-14 09:57] LABS: POTASSIUM 3.7 mmol/L (3.5-5.1)
[2024-02-14 09:59] LABS: BLOOD UREA NITROGEN 30.4 mg/dL (7-18); CALCIUM 10.4 mg/dL (8.5-10.1)
[2024-02-14 10:02] LABS: CREATININE 1.3 mg/dL (0.55-1.3)
[2024-02-14 10:04] LABS: BILIRUBIN,TOTAL 0.5 mg/dL (0.2-1)
[2024-02-14 10:32] LABS: ANISOCYTOSIS 2+; MACROCYTOSIS 0
[2024-02-14] MEDS ORDERED: LACTULOSE 20 GM/30 ML UDC (FOR ORAL USE ONLY) GT PRN (11:21)
[2024-02-14] MEDS ORDERED: PIPERACILLIN/TAZOB 4.5 GM 4.5 GM/100 ML BAG IVPB ONE (11:48)
[2024-02-14] MEDS: PIPERACILLIN/TAZOB 4.5 GM 4.5 GM in DEXTROSE 5%-WATER 100 ML IVPB ONE (12:00)
[2024-02-14] MEDS: ALBUTEROL SO4 2.5/IPRATROPIUM 0.5 INH SOL 3 ML VIAL.NEB. NEB SCH (12:45)
[2024-02-14] MEDS ORDERED: VANCOMYCIN 1 GM PREMIX (F) 1 GM/200 ML BAG ONE (12:54)
[2024-02-14 12:59] LABS: EPI CELLS >36 /uL (0-25.1); HYALINE CASTS 1 /uL (0-3.1); PH,URINE 5.5 (5.0-8.0); URINE APPEARANCE TURBID; URINE BACTERIA 102 /uL (0-1359); URINE BILIRUBIN NEGATIVE (NEGATIVE); URINE COLOR YELLOW; URINE GLUCOSE (UA) NEGATIVE (NEGATIVE); URINE KETONE TRACE (NEGATIVE); URINE LEUK ESTERASE 3+ (NEGATIVE); URINE NITRITE NEGATIVE (NEGATIVE); URINE PROTEIN 3+ (NEGATIVE); URINE UROBILINOGEN 0.2 mg/dL (0.2-1.0); URINE WBC 18776 /uL (0-25.8)
[2024-02-14] MEDS: VANCOMYCIN 1 GM PREMIX (F) 1 GM/200 ML BAG IVPB ONE (13:01)
[2024-02-14] MEDS: VANCOMYCIN 1,000 MG in DEXTROSE 5%-WATER - 250 ML IVPB ONE (13:01)
[2024-02-14] MEDS ORDERED: ALBUTEROL SO4 2.5/IPRATROPIUM 0.5 INH SOL 3 ML VIAL.NEB. NEB ONE ×2 (13:05→16:47)
[2024-02-14 13:25] LABS: URINE RBC 792 /uL (0-23.9)
[2024-02-14 13:26] LABS: URINE CRYSTALS NONE SEEN /hpf; YEAST PRESENT (NEGATIVE)
[2024-02-14 14:06] LABS: HEMATOCRIT 43.7 % (32.4-45.2); HEMOGLOBIN 13.7 GM/dL (10.7-15.3); MCH 25.6 pg (25.7-33.7); MCHC 31.3 g/dl (32.0-36.0); MEAN CELL VOLUME 81.9 fl (80-96); MEAN PLT VOLUME 9.4 fl (7.5-11.1); PLATELET COUNT 348 10^3/uL (134-434); RBC 5.34 M/mm3 (3.60-5.2); RDW 22.5 % (11.6-15.6); WHITE BLOOD COUNT 8.2 K/mm3 (4.0-10.0)
[2024-02-14] MEDS: SODIUM CHLORIDE 1,000 ML IV SCH (14:17)
[2024-02-14] MEDS ORDERED: ONDANSETRON 4 MG/2 ML VIAL ONE (14:28)
[2024-02-14] MEDS: ONDANSETRON 4 MG/2 ML VIAL IVPUSH ONE (14:30)
[2024-02-14] MEDS ORDERED: METOPROLOL TARTRATE 5 MG/5 ML VIAL IVPUSH PRN (14:30)
[2024-02-14] MEDS ORDERED: dilTIAZem HCL 50 MG/10 ML - 10 ML VIAL IVPUSH PRN (14:31)
[2024-02-14] MEDS ORDERED: METOPROLOL TARTRATE 5 MG/5 ML VIAL ONE (14:54)
[2024-02-14] MEDS: METOPROLOL TARTRATE 5 MG/5 ML VIAL IVPUSH PRN (15:02)
[2024-02-14] MEDS ORDERED: GABAPENTIN 100 MG CAPSULE ONE (15:07)
[2024-02-14] MEDS ORDERED: ACETAMINOPHEN INJECTION 100 ML ONE (15:07)
[2024-02-14] MEDS ORDERED: SIMETHICONE 80 MG TAB.CHEW (FP) ONE (15:07)
[2024-02-14] MEDS: SIMETHICONE 80 MG TAB.CHEW (FP) PO SCH (15:27)
[2024-02-14] MEDS: ACETAMINOPHEN 1000 MG/100 ML BAG IVPB ONE (15:27)
[2024-02-14] MEDS: GABAPENTIN 100 MG CAPSULE PO SCH (15:27)
[2024-02-14] MEDS: SODIUM CHLORIDE 1,000 ML IV STA (16:46)
[2024-02-14] MEDS ORDERED: PIPERACILLIN/TAZOB 2.25 GM 2.25 GM in DEXTROSE 5%-WATER - 50 ML IVPB SCH (18:00)
[2024-02-14] MEDS ORDERED: PIPERACILLIN/TAZOB 2.25 GM 2.25 GM/50 ML BAG IVPB SCH (18:00)
[2024-02-14] MEDS: PIPERACILLIN/TAZOB 3.375 GM 50 ML IVPB SCH (19:01)
[2024-02-14] MEDS: MELATONIN 5 MG TABLETS PO SCH (21:41)
[2024-02-15] MEDS: SODIUM CHLORIDE 500 ML IV STA (01:05)
[2024-02-15] MEDS: ACETAMINOPHEN 1000 MG/100 ML BAG IVPB ONE (06:23)
[2024-02-15 06:58] LABS: HEMATOCRIT 39.6 % (32.4-45.2); HEMOGLOBIN 12.2 GM/dL (10.7-15.3); MCH 25.8 pg (25.7-33.7); MCHC 30.9 g/dl (32.0-36.0); MEAN CELL VOLUME 83.7 fl (80-96); MEAN PLT VOLUME 9.8 fl (7.5-11.1); PLATELET COUNT 298 10^3/uL (134-434); RBC 4.73 M/mm3 (3.60-5.2); RDW 23.5 % (11.6-15.6); WHITE BLOOD COUNT 7.8 K/mm3 (4.0-10.0)
[2024-02-15 07:07] LABS: POTASSIUM 3.7 mmol/L (3.5-5.1)
[2024-02-15 07:10] LABS: BLOOD UREA NITROGEN 29.7 mg/dL (7-18); MAGNESIUM 2.3 mg/dL (1.8-2.4)
[2024-02-15 07:13] LABS: CREATININE 1.3 mg/dL (0.55-1.3)
[2024-02-15 07:14] LABS: PHOSPHOROUS 5.4 mg/dL (2.5-4.9)
[2024-02-15 07:30] LABS: LACTIC ACID 2.6 mmol/L (0.4-2.0)
[2024-02-15] MEDS ORDERED: METOPROLOL TARTRATE 5 MG/5 ML VIAL IVPUSH PRN (09:23)
[2024-02-15] MEDS ORDERED: LACTULOSE 20 GM/30 ML UDC (FOR ORAL USE ONLY) GT PRN (09:23)
[2024-02-15] MEDS ORDERED: MAGNESIUM HYDROX 2400MG/30ML ORAL SUSPENSION 30 ML CUP GT SCH (10:00)
[2024-02-15] MEDS ORDERED: VANCOMYCIN 1 GM PREMIX (F) 1 GM/200 ML BAG IVPB ONE (10:00)
[2024-02-15] MEDS ORDERED: DULoxetine HCL 30 MG CAPSULE.DR PO SCH (10:00)
[2024-02-15] MEDS ORDERED: ENOXAPARIN NA (PORCINE) 40 MG/0.4 ML DISP.SYRIN SQ SCH (10:00)
[2024-02-15 10:05] LABS: LACTIC ACID 2.5 mmol/L (0.4-2.0)
[2024-02-15] MEDS: SIMETHICONE 80 MG TAB.CHEW (FP) PO SCH (10:37)
[2024-02-15] MEDS: PIPERACILLIN/TAZOB 3.375 GM 50 ML IVPB SCH (10:37)
[2024-02-15] MEDS: DULoxetine HCL 30 MG CAPSULE.DR PO SCH (10:38)
[2024-02-15] MEDS: ENOXAPARIN NA (PORCINE) 40 MG/0.4 ML DISP.SYRIN SQ SCH (10:38)
[2024-02-15] MEDS: MAGNESIUM HYDROX 2400MG/30ML ORAL SUSPENSION 30 ML CUP GT SCH (10:38)
[2024-02-15] MEDS: SODIUM CHLORIDE 1,000 ML IV SCH ×2 (10:42→11:16)
[2024-02-15] MEDS: FAMOTIDINE 20 MG/2.5 ML ORAL LIQUID PO SCH ×2 (10:54→11:16)
[2024-02-15] MEDS: ACETAMINOPHEN 1000 MG/100 ML BAG IVPB PRN (11:14)
[2024-02-15] MEDS: ALBUTEROL SO4 2.5/IPRATROPIUM 0.5 INH SOL 3 ML VIAL.NEB. NEB SCH (11:35)
[2024-02-15 12:45] LABS: LACTIC ACID 3.1 mmol/L (0.4-2.0)
[2024-02-15] MEDS: GABAPENTIN 100 MG CAPSULE PO SCH (14:25)
[2024-02-15] MEDS: SODIUM CHLORIDE 1,000 ML IV STA (14:32)
[2024-02-15 14:58] LABS: LACTIC ACID 3.2 mmol/L (0.4-2.0)
[2024-02-15 16:27] LABS: LACTIC ACID 2.7 mmol/L (0.4-2.0)
[2024-02-15] MEDS: PROCHLORPERAZINE INJECTION 10 MG/2 ML VIAL IVPB PRN (22:39)
[2024-02-15] MEDS: MELATONIN 5 MG TABLETS PO SCH (22:39)
[2024-02-16 07:42] LABS: HEMATOCRIT 38.1 % (32.4-45.2); HEMOGLOBIN 11.5 GM/dL (10.7-15.3); MCH 25.5 pg (25.7-33.7); MCHC 30.1 g/dl (32.0-36.0); MEAN CELL VOLUME 84.6 fl (80-96); MEAN PLT VOLUME 9.7 fl (7.5-11.1); PLATELET COUNT 226 10^3/uL (134-434); RDW 23.1 % (11.6-15.6); WHITE BLOOD COUNT 6.7 K/mm3 (4.0-10.0)
[2024-02-16 07:57] LABS: POTASSIUM 3.3 mmol/L (3.5-5.1)
[2024-02-16 08:00] LABS: BLOOD UREA NITROGEN 25.9 mg/dL (7-18)
[2024-02-16 08:01] LABS: CALCIUM 8.6 mg/dL (8.5-10.1); MAGNESIUM 2.4 mg/dL (1.8-2.4)
[2024-02-16 08:03] LABS: PHOSPHOROUS 3.8 mg/dL (2.5-4.9)
[2024-02-16 08:16] LABS: INR 0.9 (0.83-1.09); PROTHROMBIN TIME (PATIENT) 10.4 SEC (9.7-13.0)
[2024-02-16] MEDS ORDERED: BUPIVACAINE HCL/PF 0.25% (2.5MG/ML) 10 ML VIAL ONE (13:13)
[2024-02-16] MEDS ORDERED: HEPARIN NA (PORCINE) 5,000 UNITS/ML 1ML VIAL ONE (13:14)
[2024-02-16] MEDS ORDERED: PROPOFOL 20 ML ONE (13:15)
[2024-02-16] MEDS ORDERED: LIDOCAINE HCL/PF 2% SDV 5ML VIAL ONE (13:15)
[2024-02-16] MEDS ORDERED: ROCURONIUM BROMIDE 50 MG/5 ML SYRINGE ONE ×2 (13:15→13:18)
[2024-02-16] MEDS ORDERED: ETOMIDATE 20 MG/10 ML VIAL IVPUSH ONE (13:31)
[2024-02-16] MEDS: cefOXitin SODIUM 2 GM VIAL (RESTRICTED TO ID) IVPB ONE (14:17)
[2024-02-16] MEDS: HEPARIN NA (PORCINE) 5,000 UNITS/ML 1ML VIAL SQ ONE (14:20)
[2024-02-16] MEDS: BUPIVACAINE HCL/PF 0.25% (2.5MG/ML) 10 ML VIAL IJ ONE (14:39)
[2024-02-16] MEDS ORDERED: SUGAMMADEX SODIUM 200 MG/2 ML VIAL ONE (15:46)
[2024-02-16] MEDS ORDERED: ONDANSETRON 4 MG/2 ML VIAL ONE (15:47)
[2024-02-16] MEDS ORDERED: LACTULOSE 20 GM/30 ML UDC (FOR ORAL USE ONLY) GT PRN (16:06)
[2024-02-16] MEDS ORDERED: PROCHLORPERAZINE INJECTION 10 MG/2 ML VIAL IVPB PRN (16:06)
[2024-02-16] MEDS ORDERED: METOPROLOL TARTRATE 5 MG/5 ML VIAL IVPUSH PRN (16:06)
[2024-02-16] MEDS ORDERED: ONDANSETRON 4 MG/2 ML VIAL IVPUSH PRN (16:13)
[2024-02-16] MEDS: ACETAMINOPHEN 1000 MG/100 ML BAG IVPB PRN (16:33)
[2024-02-16] MEDS: SODIUM CHLORIDE 1,000 ML IV SCH (17:15)
[2024-02-16] MEDS: PIPERACILLIN/TAZOB 3.375 GM 50 ML IVPB SCH (17:56)
[2024-02-16] MEDS: SIMETHICONE 80 MG TAB.CHEW (FP) PO SCH (17:56)
[2024-02-16] MEDS: LACTATED RINGERS SOLUTION 1,000 ML IV SCH (19:01)
[2024-02-16] MEDS: ALBUTEROL SO4 2.5/IPRATROPIUM 0.5 INH SOL 3 ML VIAL.NEB. NEB SCH (20:30)
[2024-02-16] MEDS: MELATONIN 5 MG TABLETS PO SCH (21:07)
[2024-02-16] MEDS: GABAPENTIN 100 MG CAPSULE PO SCH (21:09)
[2024-02-17 07:30] LABS: HEMATOCRIT 35.9 % (32.4-45.2); HEMOGLOBIN 10.8 GM/dL (10.7-15.3); MCH 25.8 pg (25.7-33.7); MCHC 30.2 g/dl (32.0-36.0); MEAN CELL VOLUME 85.3 fl (80-96); MEAN PLT VOLUME 9.6 fl (7.5-11.1); PLATELET COUNT 216 10^3/uL (134-434); RBC 4.21 M/mm3 (3.60-5.2); RDW 23.4 % (11.6-15.6); WHITE BLOOD COUNT 6.5 K/mm3 (4.0-10.0)
[2024-02-17 08:35] LABS: POTASSIUM 3.5 mmol/L (3.5-5.1)
[2024-02-17 08:36] LABS: BLOOD UREA NITROGEN 15.7 mg/dL (7-18); CALCIUM 8.7 mg/dL (8.5-10.1)
[2024-02-17 08:37] LABS: MAGNESIUM 2.1 mg/dL (1.8-2.4)
[2024-02-17 08:40] LABS: CREATININE 0.7 mg/dL (0.55-1.3); PHOSPHOROUS 2.7 mg/dL (2.5-4.9)
[2024-02-17] MEDS: DULoxetine HCL 30 MG CAPSULE.DR PO SCH (10:01)
[2024-02-17] MEDS: FAMOTIDINE 20 MG/2.5 ML ORAL LIQUID PO SCH (10:02)
[2024-02-17] MEDS: MAGNESIUM HYDROX 2400MG/30ML ORAL SUSPENSION 30 ML CUP GT SCH (10:02)
[2024-02-17 23:21] VITALS: BP 108/63; PULSE 97; RESP 19; TEMP 98.4
== END 2024-02-17 22:20 | DRG 853 ==
LOC: JER 08:25 → JERBED 11:03 → J4S 18:12
PROVIDERS: ADMIT Internal Medicine; ATTEND Internal Medicine
PROC: 0DT60ZZ Resection of Stomach, Open Approach (ICD-10-PCS; 2024-02-16)
PROC: 8E0W0CZ Robotic Assisted Procedure of Trunk Region, Open Approach (ICD-10-PCS; 2024-02-16)
PROC: 0DNU0ZZ Release Omentum, Open Approach (ICD-10-PCS; principal; 2024-02-16 14:00)
PROC: 0DQ68ZZ Repair Stomach, Via Natural or Artificial Opening Endoscopic (ICD-10-PCS; 2024-02-16 14:00)
DX: A41.9 Sepsis, unspecified organism (principal); J18.9 Pneumonia, unspecified organism; K31.6 Fistula of stomach and duodenum; G82.20 Paraplegia, unspecified; N39.0 Urinary tract infection, site not specified; G35 Multiple sclerosis; R09.02 Hypoxemia; K94.21 Gastrostomy hemorrhage; M79.7 Fibromyalgia; F03.90 Unspecified dementia, unspecified severity, without behavioral disturbance, psychotic disturbance, mood disturbance, and anxiety; B96.1 Klebsiella pneumoniae [K. pneumoniae] as the cause of diseases classified elsewhere; K66.0 Peritoneal adhesions (postprocedural) (postinfection); Y83.9 Surgical procedure, unspecified as the cause of abnormal reaction of the patient, or of later complication, without mention of misadventure at the time of the procedure
CPT/HCPCS: 0241U-QW; 36415; 71045-TC-FY; 74176-TC; 80048; 80053; 81003; 82803; 82962; 83605; 83735; 84100; 84484; 85025; 85027; 85610; 85730; 86850; 86900; 86901; 87077; 87086; 87186; 88307-TC; 88342-TC; 93005; 93010; 94640; 94760; 99285-25; J0131; J1644

== ENCOUNTER 2024-03-04 13:33 | Inpatient (IN) | payer OTHER ==
[2024-03-04 15:35] LABS: HEMATOCRIT 38.9 % (32.4-45.2); HEMOGLOBIN 12.3 GM/dL (10.7-15.3); LYMPH % 40.7 % (8-40); MCH 26.9 pg (25.7-33.7); MCHC 31.7 g/dl (32.0-36.0); MEAN CELL VOLUME 84.9 fl (80-96); MONO % 12.5 % (3.8-10.2); NEUT % 41.8 % (42.8-82.8); PLATELET COUNT 506 10^3/uL (134-434); RBC 4.58 M/mm3 (3.60-5.2); RDW 26.7 % (11.6-15.6); WHITE BLOOD COUNT 5.7 K/mm3 (4.0-10.0)
[2024-03-04 15:57] LABS: INR 0.99 (0.83-1.09); PROTHROMBIN TIME (PATIENT) 11.2 SEC (9.7-13.0)
[2024-03-04 16:04] LABS: POTASSIUM 4.9 mmol/L (3.5-5.1)
[2024-03-04 16:06] LABS: ALBUMIN 2.2 g/dl (3.4-5.0); BLOOD UREA NITROGEN 10.8 mg/dL (7-18); CALCIUM 9.3 mg/dL (8.5-10.1)
[2024-03-04 16:10] LABS: CREATININE 0.5 mg/dL (0.55-1.3)
[2024-03-04 16:11] LABS: BILIRUBIN,TOTAL 0.5 mg/dL (0.2-1); TOT PROT 6.6 g/dl (6.4-8.2)
[2024-03-04 16:16] LABS: LACTIC ACID 2.3 mmol/L (0.4-2.0)
[2024-03-04 16:49] LABS: EPI CELLS >36 /uL (0-25.1); HYALINE CASTS 12 /uL (0-3.1); PH,URINE 5.5 (5.0-8.0); URINE APPEARANCE TURBID; URINE BACTERIA 783 /uL (0-1359); URINE BILIRUBIN NEGATIVE (NEGATIVE); URINE COLOR DK YELLOW; URINE GLUCOSE (UA) NEGATIVE (NEGATIVE); URINE KETONE 1+ (NEGATIVE); URINE LEUK ESTERASE 3+ (NEGATIVE); URINE NITRITE NEGATIVE (NEGATIVE); URINE PROTEIN 2+ (NEGATIVE); URINE UROBILINOGEN 0.2 mg/dL (0.2-1.0); URINE WBC 6398 /uL (0-25.8)
[2024-03-04 17:16] LABS: ANISOCYTOSIS 2+; MACROCYTOSIS 0; OVALOCYTE 1+
[2024-03-04 17:31] LABS: URINE RBC 298 /uL (0-23.9)
[2024-03-04 17:33] LABS: YEAST PRESENT (NEGATIVE)
[2024-03-04] MEDS ORDERED: CEFTRIAXONE 1 G/50 ML PREMIX 50 ML IVPB ONE (17:38)
[2024-03-04] MEDS: SODIUM CHLORIDE 1,000 ML IV STA (17:56)
[2024-03-04 18:20] LABS: EPI CELLS >36 /uL (0-25.1); HYALINE CASTS 7 /uL (0-3.1); PH,URINE 5.5 (5.0-8.0); URINE APPEARANCE TURBID; URINE BACTERIA 285 /uL (0-1359); URINE BILIRUBIN NEGATIVE (NEGATIVE); URINE COLOR YELLOW; URINE GLUCOSE (UA) NEGATIVE (NEGATIVE); URINE KETONE 1+ (NEGATIVE); URINE LEUK ESTERASE 3+ (NEGATIVE); URINE NITRITE NEGATIVE (NEGATIVE); URINE PROTEIN 3+ (NEGATIVE); URINE WBC 10031 /uL (0-25.8)
[2024-03-04 18:37] LABS: URINE RBC 420.5 /uL (0-23.9); YEAST FEW (NEGATIVE)
[2024-03-04 18:42] LABS: POTASSIUM 3.9 mmol/L (3.5-5.1)
[2024-03-04 18:44] LABS: CALCIUM 9.2 mg/dL (8.5-10.1)
[2024-03-04 18:45] LABS: ALBUMIN 2.3 g/dl (3.4-5.0); BLOOD UREA NITROGEN 11.7 mg/dL (7-18)
[2024-03-04 18:48] LABS: CREATININE 0.5 mg/dL (0.55-1.3)
[2024-03-04 18:49] LABS: BILIRUBIN,TOTAL 0.4 mg/dL (0.2-1); TOT PROT 6.8 g/dl (6.4-8.2)
[2024-03-04] MEDS ORDERED: VANCOMYCIN/WATER FOR INJ (PEG) 1,000 MG/200 ML BAG IVPB SCH (22:00)
[2024-03-04] MEDS ORDERED: VANCOMYCIN 1 GM PREMIX (F) 1 GM/200 ML BAG ONE (22:11)
[2024-03-04] MEDS: VANCOMYCIN 1 GM PREMIX (F) 1,000 MG/200 ML BAG IVPB SCH (22:18)
[2024-03-05] MEDS: BACLOFEN 10 MG TABLET (FP) PO SCH (06:15)
[2024-03-05] MEDS: GABAPENTIN 100 MG CAPSULE PO SCH (06:16)
[2024-03-05 09:19] LABS: HEMOGLOBIN 12.4 GM/dL (10.7-15.3); MCH 26.9 pg (25.7-33.7); MCHC 31.7 g/dl (32.0-36.0); MEAN CELL VOLUME 85.1 fl (80-96); MEAN PLT VOLUME 9.6 fl (7.5-11.1); PLATELET COUNT 490 10^3/uL (134-434); RBC 4.59 M/mm3 (3.60-5.2); RDW 27.8 % (11.6-15.6); WHITE BLOOD COUNT 7.4 K/mm3 (4.0-10.0)
[2024-03-05] MEDS: SIMETHICONE 80 MG TAB.CHEW (FP) PO SCH (09:28)
[2024-03-05] MEDS: ERTAPENEM SODIUM 1 GM in SODIUM CHLORIDE 50 ML IVPB SCH (09:28)
[2024-03-05] MEDS: FAMOTIDINE 20 MG TABLET PO SCH (09:28)
[2024-03-05] MEDS: DULoxetine HCL 30 MG CAPSULE.DR PO SCH (09:28)
[2024-03-05] MEDS: ENOXAPARIN NA (PORCINE) 40 MG/0.4 ML DISP.SYRIN SQ SCH (09:28)
[2024-03-05] MEDS: MAGNESIUM HYDROX 2400MG/30ML ORAL SUSPENSION 30 ML CUP PO SCH (09:28)
[2024-03-05 09:45] LABS: POTASSIUM 4.2 mmol/L (3.5-5.1)
[2024-03-05 09:49] LABS: ALBUMIN 2.2 g/dl (3.4-5.0); BLOOD UREA NITROGEN 9.8 mg/dL (7-18); CALCIUM 9.1 mg/dL (8.5-10.1); MAGNESIUM 1.9 mg/dL (1.8-2.4)
[2024-03-05 09:52] LABS: CREATININE 0.5 mg/dL (0.55-1.3)
[2024-03-05 09:53] LABS: PHOSPHOROUS 3.6 mg/dL (2.5-4.9)
[2024-03-05 09:54] LABS: BILIRUBIN,TOTAL 0.5 mg/dL (0.2-1); TOT PROT 6.4 g/dl (6.4-8.2)
[2024-03-05] MEDS ORDERED: ERTAPENEM SODIUM 1 GM in SODIUM CHLORIDE 50 ML IVPB SCH (10:00)
[2024-03-05] MEDS: VANCOMYCIN/WATER FOR INJ (PEG) 1,000 MG/200 ML BAG IVPB SCH (10:47)
[2024-03-05] MEDS ORDERED: ONDANSETRON 4 MG/2 ML VIAL IVPUSH PRN (18:15)
[2024-03-05] MEDS: LACTOBACILLUS ACIDOPHILUS 1 TABLET PO SCH (22:07)
[2024-03-05] MEDS: MELATONIN 5 MG TABLETS PO SCH (22:08)
[2024-03-05] MEDS: oxyCODONE HCL 5 MG TABLET PO PRN (22:09)
[2024-03-06 09:13] LABS: HEMATOCRIT 41.7 % (32.4-45.2); MCH 26.9 pg (25.7-33.7); MCHC 31.1 g/dl (32.0-36.0); MEAN CELL VOLUME 86.4 fl (80-96); MEAN PLT VOLUME 9.6 fl (7.5-11.1); PLATELET COUNT 452 10^3/uL (134-434); RBC 4.83 M/mm3 (3.60-5.2); RDW 27.1 % (11.6-15.6); WHITE BLOOD COUNT 7.9 K/mm3 (4.0-10.0)
[2024-03-06] MEDS: VANCOMYCIN 1,000 MG in DEXTROSE 5%-WATER - 250 ML IVPB SCH (09:24)
[2024-03-06 09:25] LABS: POTASSIUM 4.4 mmol/L (3.5-5.1)
[2024-03-06 09:27] LABS: CALCIUM 9.5 mg/dL (8.5-10.1)
[2024-03-06 09:28] LABS: ALBUMIN 2.3 g/dl (3.4-5.0); BLOOD UREA NITROGEN 11.3 mg/dL (7-18)
[2024-03-06 09:31] LABS: CREATININE 0.6 mg/dL (0.55-1.3)
[2024-03-06 09:32] LABS: BILIRUBIN,TOTAL 0.6 mg/dL (0.2-1)
[2024-03-06 09:33] LABS: TOT PROT 7.2 g/dl (6.4-8.2)
[2024-03-06 10:13] VITALS: RESP 18
[2024-03-07 08:43] LABS: HEMATOCRIT 35.5 % (32.4-45.2); HEMOGLOBIN 11.3 GM/dL (10.7-15.3); MCH 27.3 pg (25.7-33.7); MCHC 31.8 g/dl (32.0-36.0); MEAN PLT VOLUME 9.7 fl (7.5-11.1); PLATELET COUNT 385 10^3/uL (134-434); RBC 4.13 M/mm3 (3.60-5.2); RDW 27.1 % (11.6-15.6); WHITE BLOOD COUNT 5.7 K/mm3 (4.0-10.0)
[2024-03-07 09:03] LABS: POTASSIUM 4.2 mmol/L (3.5-5.1)
[2024-03-07 09:06] LABS: CALCIUM 9.1 mg/dL (8.5-10.1)
[2024-03-07 09:10] LABS: CREATININE 0.5 mg/dL (0.55-1.3)
[2024-03-07 09:11] LABS: BILIRUBIN,TOTAL 0.5 mg/dL (0.2-1); TOT PROT 6.2 g/dl (6.4-8.2)
[2024-03-07 14:35] VITALS: BMI 27.6
[2024-03-08 07:09] VITALS: BP 108/69; PULSE 81; TEMP 97.3
[2024-03-08 09:34] LABS: BASO % 2.7 % (0-2.0); EOS % 7.6 % (0-4.5); HEMATOCRIT 40.5 % (32.4-45.2); HEMOGLOBIN 12.7 GM/dL (10.7-15.3); LYMPH % 36.3 % (8-40); MCH 27.3 pg (25.7-33.7); MCHC 31.5 g/dl (32.0-36.0); MEAN CELL VOLUME 86.8 fl (80-96); MEAN PLT VOLUME 9.8 fl (7.5-11.1); MONO % 10.6 % (3.8-10.2); NEUT % 42.8 % (42.8-82.8); PLATELET COUNT 359 10^3/uL (134-434); RBC 4.67 M/mm3 (3.60-5.2); RDW 26.8 % (11.6-15.6); WHITE BLOOD COUNT 5.2 K/mm3 (4.0-10.0)
[2024-03-08 09:49] LABS: POTASSIUM 5.4 mmol/L (3.5-5.1)
[2024-03-08 09:59] LABS: ALBUMIN 2.2 g/dl (3.4-5.0); BILIRUBIN,TOTAL 0.4 mg/dL (0.2-1); CALCIUM 9.2 mg/dL (8.5-10.1)
[2024-03-08 10:00] LABS: BLOOD UREA NITROGEN 10.9 mg/dL (7-18)
[2024-03-08 10:02] LABS: CREATININE 0.5 mg/dL (0.55-1.3)
[2024-03-08 10:03] LABS: TOT PROT 6.5 g/dl (6.4-8.2)
[2024-03-08 10:46] LABS: ANISOCYTOSIS 1+; MACROCYTOSIS 0
== END 2024-03-08 10:44 | DRG 690 ==
LOC: JER 13:33 → JERBED 17:23 → J8W 23:39 → OBSVTOIN 03-05 10:03
PROVIDERS: ADMIT Internal Medicine; ATTEND Nurse Practitioner Family
DX: N39.0 Urinary tract infection, site not specified (principal); K56.7 Ileus, unspecified; G82.20 Paraplegia, unspecified; M79.7 Fibromyalgia; I10 Essential (primary) hypertension; E78.5 Hyperlipidemia, unspecified; B96.20 Unspecified Escherichia coli [E. coli] as the cause of diseases classified elsewhere; G35 Multiple sclerosis; F41.8 Other specified anxiety disorders; J45.909 Unspecified asthma, uncomplicated; F03.90 Unspecified dementia, unspecified severity, without behavioral disturbance, psychotic disturbance, mood disturbance, and anxiety; R79.89 Other specified abnormal findings of blood chemistry; Z87.11 Personal history of peptic ulcer disease; Z96.651 Presence of right artificial knee joint; Z96.641 Presence of right artificial hip joint
CPT/HCPCS: 36415; 74177-TC; 76705-TC; 80053; 81003; 82140; 83605; 83735; 84100; 85025; 85027; 85610; 85730; 86850; 86900; 86901; 87086; 87186; 87635; 93005; 93010; 97161-GP; 99285-25; G0378; J0475; Q9967

== ENCOUNTER 2024-05-18 06:18 | Inpatient (IN) | payer OTHER ==
[2024-05-18] MEDS ORDERED: DEXTROSE 50%-WATER 25 GM/50 ML DISP.SYRIN ONE (06:29)
[2024-05-18] MEDS ORDERED: RAPID SEQUENCE INTUBATION KIT NR ONE ×2 (06:29→06:38)
[2024-05-18] MEDS: ETOMIDATE 40 MG/20 ML VIAL IVPUSH ONE (06:38)
[2024-05-18] MEDS: ROCURONIUM BROMIDE 50 MG/5 ML VIAL IV ONE (06:39)
[2024-05-18] MEDS ORDERED: GLUCAGON 1 MG KIT ONE (06:51)
[2024-05-18 06:54] LABS: VENOUS BASE EXCESS -1.3 mmol/L (-2-2); VENOUS O2 SATURATION 53.4 % (70-80); VENOUS PCO2 55.2 mmHg (38-52); VENOUS PH 7.292 (7.310-7.410)
[2024-05-18 07:26] LABS: INR 1.06 (0.83-1.09); PROTHROMBIN TIME (PATIENT) 11.6 SEC (9.7-13.0)
[2024-05-18 07:27] LABS: CHLORIDE 104 mmol/L (98-107); POTASSIUM 4.6 mmol/L (3.5-5.1); SODIUM 137 mmol/L (136-145)
[2024-05-18 07:29] LABS: ACTIVATED PTT 25.5 SECONDS (25.2-36.5)
[2024-05-18 07:34] LABS: CALCIUM 8.5 mg/dL (8.5-10.1)
[2024-05-18 07:35] LABS: ALBUMIN 1.5 g/dl (3.4-5.0); ANION GAP 8 mmol/L (4-13); BLOOD UREA NITROGEN 20.5 mg/dL (7-18); CO2 24 mmol/L (21-32)
[2024-05-18 07:38] LABS: CREATININE 1.3 mg/dL (0.55-1.3); SGOT/AST 44 U/L (15-37); SGPT/ALT 27 U/L (13-61)
[2024-05-18 07:40] LABS: TOT PROT 5.5 g/dl (6.4-8.2)
[2024-05-18 07:41] LABS: ALK PHOS 170 U/L (45-117)
[2024-05-18 07:42] LABS: GLUCOSE,RANDOM 42 mg/dL (74-106)
[2024-05-18] MEDS ORDERED: PIPERACILLIN/TAZOB 4.5 GM 4.5 GM/100 ML BAG IVPB ONE (08:15)
[2024-05-18] MEDS: PIPERACILLIN/TAZOB 4.5 GM 4.5 GM in DEXTROSE 5%-WATER 100 ML IVPB ONE (08:20)
[2024-05-18] MEDS: SODIUM CHLORIDE 1,000 ML IV SCH ×2 (08:20→16:03)
[2024-05-18 08:26] LABS: EPI CELLS >36 /uL (0-25.1); HYALINE CASTS 106 /uL (0-3.1); PH,URINE 5.5 (5.0-8.0); URINE APPEARANCE TURBID; URINE BACTERIA 7282 /uL (0-1359); URINE BILIRUBIN 2+ (NEGATIVE); URINE COLOR DK YELLOW; URINE GLUCOSE (UA) NEGATIVE (NEGATIVE); URINE KETONE TRACE (NEGATIVE); URINE LEUK ESTERASE 3+ (NEGATIVE); URINE NITRITE NEGATIVE (NEGATIVE); URINE PROTEIN 3+ (NEGATIVE); URINE WBC 33859 /uL (0-25.8)
[2024-05-18] MEDS: SODIUM CHLORIDE 1,000 ML IV STA (08:28)
[2024-05-18 08:29] LABS: HEMATOCRIT 39.9 % (32.4-45.2); HEMOGLOBIN 12.5 GM/dL (10.7-15.3); MCH 31.8 pg (25.7-33.7); MCHC 31.3 g/dl (32.0-36.0); MEAN CELL VOLUME 101.8 fl (80-96); MEAN PLT VOLUME 9.9 fl (7.5-11.1); PLATELET COUNT 342 10^3/uL (134-434); RBC 3.92 M/mm3 (3.60-5.2); RDW 22.4 % (11.6-15.6); WHITE BLOOD COUNT 12.6 K/mm3 (4.0-10.0)
[2024-05-18 08:54] LABS: URINE RBC 798 /uL (0-23.9); YEAST PRESENT (NEGATIVE)
[2024-05-18] MEDS ORDERED: VANCOMYCIN 1 GM PREMIX (F) 1 GM/200 ML BAG ONE (09:04)
[2024-05-18] MEDS: VANCOMYCIN 1,000 MG in DEXTROSE 5%-WATER - 250 ML IVPB ONE (09:11)
[2024-05-18 09:16] LABS: ARTERIAL BLD GAS O2 SATURATION 99.8 % (95-98); ARTERIAL BLOOD GAS BASE EXCESS -2.6 mmol/L (-2-2); ARTERIAL BLOOD GAS PO2 414.6 mmHg (80-100); ARTERIAL BLOOD GAS pH 7.337 (7.350-7.450)
[2024-05-18 09:18] LABS: ALLENS TEST POSITIVE; VENT MODE A/C; VENT RATE 5
[2024-05-18 09:28] LABS: POTASSIUM 4.1 mmol/L (3.5-5.1)
[2024-05-18 09:29] LABS: BLOOD UREA NITROGEN 18.9 mg/dL (7-18); CALCIUM 7.8 mg/dL (8.5-10.1)
[2024-05-18 09:33] LABS: CREATININE 1.3 mg/dL (0.55-1.3)
[2024-05-18 09:43] LABS: LACTIC ACID 2.2 mmol/L (0.4-2.0)
[2024-05-18] MEDS: LACTATED RINGERS SOLUTION 1,000 ML/1,000 ML INFUS.BAG IV STA ×2 (10:22→11:22)
[2024-05-18 11:18] LABS: MACROCYTOSIS 1+
[2024-05-18] MEDS ORDERED: NOREPINEPHRINE BITARTRATE 4 MG/4 ML ML IV ONE (11:57)
[2024-05-18] MEDS ORDERED: VASopressin 20 UNITS/ML VIAL IV ONE ×2 (12:09→14:10)
[2024-05-18] MEDS ORDERED: NOREPINEPHRINE BITARTRATE 4,000 MCG in DEXTROSE 5%-WATER - 496 ML IV SCH (12:15)
[2024-05-18] MEDS ORDERED: MIDAZOLAM HCL 2 MG/2 ML SINGLE DOSE VIAL ONE (12:21)
[2024-05-18 13:07] LABS: LACTIC ACID 4.5 mmol/L (0.4-2.0)
[2024-05-18] MEDS: DEXMEDETOMIDINE PREMIX 400 MCG/100 ML BAG IVPB SCH (13:23)
[2024-05-18] MEDS: PANTOPRAZOLE SODIUM 40 MG VIAL IVPUSH SCH (13:26)
[2024-05-18] MEDS: MIDAZOLAM HCL 2 MG/2 ML SINGLE DOSE VIAL IVPUSH ONE (13:26)
[2024-05-18] MEDS ORDERED: HEPARIN NA (PORCINE) 5,000 UNITS/ML 1ML VIAL SQ SCH (14:00)
[2024-05-18 14:49] VITALS: RESP 15
[2024-05-18] MEDS ORDERED: HEPARIN NA (PORCINE) 5,000 UNITS/ML 1ML VIAL IVPUSH PRN ×2 (14:54)
[2024-05-18] MEDS ORDERED: DOPAMINE 400 MG/D5W - 400,000 MCG/250 ML INFUS.BAG IVPB ONE (14:58)
[2024-05-18 15:37] LABS: HEMATOCRIT 41.1 % (32.4-45.2); HEMOGLOBIN 12.6 GM/dL (10.7-15.3); MCH 31.5 pg (25.7-33.7); MCHC 30.7 g/dl (32.0-36.0); MEAN CELL VOLUME 102.5 fl (80-96); MEAN PLT VOLUME 9.3 fl (7.5-11.1); PLATELET COUNT 391 10^3/uL (134-434); RBC 4.01 M/mm3 (3.60-5.2); RDW 22.1 % (11.6-15.6); WHITE BLOOD COUNT 17.2 K/mm3 (4.0-10.0)
[2024-05-18 15:51] LABS: POTASSIUM 3.9 mmol/L (3.5-5.1)
[2024-05-18 15:53] LABS: ALBUMIN 1.4 g/dl (3.4-5.0); BLOOD UREA NITROGEN 17.2 mg/dL (7-18); MAGNESIUM 1.7 mg/dL (1.8-2.4)
[2024-05-18 15:56] LABS: CREATININE 1.3 mg/dL (0.55-1.3)
[2024-05-18 15:57] LABS: PHOSPHOROUS 3.2 mg/dL (2.5-4.9)
[2024-05-18 15:58] LABS: BILIRUBIN,TOTAL 1.1 mg/dL (0.2-1); TOT PROT 5.3 g/dl (6.4-8.2)
[2024-05-18] MEDS: NOREPINEPHRINE 0.9 % NACL 8 MG/250 ML BAG IVPB SCH (16:02)
[2024-05-18] MEDS: VASopressin 40 UNITS/100 ML BAG IV SCH (16:02)
[2024-05-18] MEDS: ATORVASTATIN CA 80 MG TABLET (FP) PO SCH (16:03)
[2024-05-18] MEDS: HYDROCORTISONE SOD SUCCINATE 100 MG/2 ML VIAL IVPB SCH (16:03)
[2024-05-18] MEDS: ASPIRIN 81 MG CHEWABLE TABLETS PO ONE (16:03)
[2024-05-18] MEDS: MUPIROCIN 2% TOPICAL OINTMENT FOR DECOLONIZATION NS SCH (16:05)
[2024-05-18 16:29] LABS: ANISOCYTOSIS 2+; MACROCYTOSIS 3+
[2024-05-18] MEDS: HEPARIN - 25,000 UNIT in SODIUM CHLORIDE 495 ML IV SCH (17:04)
[2024-05-18] MEDS ORDERED: FLUDROCORTISONE ACETATE 0.1 MG TABLET (FP) PO SCH (19:00)
[2024-05-18 19:16] VITALS: BMI 25.0
[2024-05-18 19:32] VITALS: TEMP 98.3
[2024-05-18 19:48] VITALS: BP 76/29; PULSE 149
[2024-05-18] MEDS ORDERED: CHLORHEXIDINE GLUCONATE 4% CLEANSER FOR DECOLONIZATION TP SCH (22:00)
[2024-05-18] MEDS ORDERED: MEROPENEM-0.9% SODIUM CHLORIDE 1 GM/50 ML BAG IVPB SCH (22:00)
[2024-05-18] MEDS ORDERED: MORPHINE SULFATE/0.9% NACL/PF 100 MG/100 ML BAG ONE (22:08)
[2024-05-18] MEDS ORDERED: MORPHINE SULFATE/0.9% NACL/PF 100 MG/100 ML BAG IVPB SCH (22:30)
[2024-05-19] MEDS ORDERED: MEROPENEM-0.9% SODIUM CHLORIDE 1 GM/50 ML BAG IVPB SCH (10:00)
== END 2024-05-18 22:25 | disposition expired | DRG 871 ==
LOC: JER 06:18 → JERBED 07:33 → JICU 09:17
PROVIDERS: ADMIT Internal Medicine; ATTEND Internal Medicine
PROC: 5A1935Z Respiratory Ventilation, Less than 24 Consecutive Hours (ICD-10-PCS; principal; 2024-05-18)
PROC: 0BH17EZ Insertion of Endotracheal Airway into Trachea, Via Natural or Artificial Opening (ICD-10-PCS; 2024-05-18)
PROC: 06H033Z Insertion of Infusion Device into Inferior Vena Cava, Percutaneous Approach (ICD-10-PCS; 2024-05-18)
PROC: B549ZZA Ultrasonography of Inferior Vena Cava, Guidance (ICD-10-PCS; 2024-05-18)
PROC: 03HY32Z Insertion of Monitoring Device into Upper Artery, Percutaneous Approach (ICD-10-PCS; 2024-05-18)
PROC: 4A133B1 Monitoring of Arterial Pressure, Peripheral, Percutaneous Approach (ICD-10-PCS; 2024-05-18)
PROC: 4A133J1 Monitoring of Arterial Pulse, Peripheral, Percutaneous Approach (ICD-10-PCS; 2024-05-18)
DX: A41.9 Sepsis, unspecified organism (principal); G93.41 Metabolic encephalopathy; J96.01 Acute respiratory failure with hypoxia; R65.21 Severe sepsis with septic shock; I21.3 ST elevation (STEMI) myocardial infarction of unspecified site; G82.20 Paraplegia, unspecified; N17.9 Acute kidney failure, unspecified; N39.0 Urinary tract infection, site not specified; I10 Essential (primary) hypertension; E78.5 Hyperlipidemia, unspecified; J45.909 Unspecified asthma, uncomplicated; G35 Multiple sclerosis; M79.7 Fibromyalgia; F03.90 Unspecified dementia, unspecified severity, without behavioral disturbance, psychotic disturbance, mood disturbance, and anxiety; E16.2 Hypoglycemia, unspecified; R57.0 Cardiogenic shock
CPT/HCPCS: 0241U-QW; 36415; 36600; 71045-TC-FY; 80048; 80053; 81003; 82550; 82803; 82962; 83605; 83735; 84100; 84484; 85025; 85610; 85730; 86850; 86900; 86901; 87040; 87086; 87186; 93005; 93010; 93306-TC; 99291; J1250; J1644; J3490